=== PATIENT | female | born 1990 | race Caucasian/White ===

== ENCOUNTER 2018-01-02 03:17 | Emergency (ER) | payer OTHER, SELFPAY ==
[2018-01-02 03:20] VITALS: O2SAT 98
--- NOTE | 2018-01-02 03:20 | ED.SOB ---
HPI - SOB/Dyspnea General Chief Complaint: Upper Respiratory Symptoms Stated Complaint: Asthma Time Seen by Provider: 01/02/18 03:18 Source: patient Mode of arrival: ambulatory Limitations: no limitations History of Present Illness Patient is a 27-year-old female with a history of asthma here for evaluation of a asthma attack. Patient states that her symptoms started yesterday. She does have home nebulizer and has been doing that at home and also prior to arrival without improvement. States that her respiratory status has been worsening over the past couple hours. No fevers. Has been coughing. Has been admitted to the hospital in the past for asthma however has had no intubations. No chest pain. No rashes. Related Data Previous Rx's Medication Instructions Recorded dexamethasone 12 mg PO DAILY #3 tab 01/02/18 Allergies Allergy/AdvReac Type Severity Reaction Status Date / Time No Known Drug Allergies Allergy Verified 01/02/18 03:27 Review of Systems Constitutional Denies fever(s) Cardiovascular Denies chest pain and Reports dyspnea Respiratory Reports cough, Reports dyspnea and Reports wheezing Gastrointestinal Gastrointestinal: Denies nausea and Denies vomiting Musculoskeletal Denies myalgias and Denies arthralgias Integumentary/Breasts Denies lesions and Denies rash Hematologic/Lymphatic Denies easy bleeding and Denies easy bruising Allergic/Immunologic Reports wheezing [facility] Medical History Asthma (Acute) Surgical History No pertinent past surgical history (Acute) Social History Smoking Status: Never smoker Exam Initial Vital Signs Initial Vital Signs: Vital Signs Pulse Oximetry 98 01/02/18 03:20 Const General: cooperative, well developed, well groomed and in distress (Tachypneic) Orientation: alert, awake and oriented x3 Resp Effort & Inspection: labored, respiratory distress, no retractions and tachypneic Auscultation: wheezes Other: Tachypneic, 4-5 word sentences, bilateral wheezing no retractions. Cardio Rate: regular rate Rhythm: regular rhythm Heart Sounds: no murmurs Skin Lesions: no lesions Rashes: no rashes Neuro General: alert, awake and oriented x3 Extrem General: normal to inspection, capillary refill normal and No edema Psych Appearance: grossly normal and well kempt Course Orders Ordered: Discontinued Medications Albuterol/Ipratropium (Duoneb) 3 ml INH NOW ONE Stop: 01/02/18 03:19 Last Admin: 01/02/18 03:22 Dose: 3 ml Albuterol/Ipratropium (Duoneb) 3 ml INH NOW ONE Stop: 01/02/18 03:19 Last Admin: 01/02/18 03:30 Dose: 3 ml Albuterol/Ipratropium (Duoneb) 3 ml INH NOW ONE Stop: 01/02/18 03:38 Last Admin: 01/02/18 03:42 Dose: 3 ml Dexamethasone (Decadron) 10 mg PO NOW ONE Stop: 01/02/18 03:19 Last Admin: 01/02/18 03:28 Dose: 10 mg Vital Signs - 8 hr 01/02/18 03:20 01/02/18 03:21 01/02/18 03:30 Temperature 97.2 F L Pulse Rate 118 H Respiratory Rate 18 Blood Pressure 158/97 H Pulse Oximetry 98 97 98 MDM - SOB/Dyspnea MDM Narrative Medical decision making narrative: Patient received 3 duo nebs here in the emergency department and also Decadron. Patient states that she feels much better after the duo nebs. She states when this happens she normally needs steroids. Hold on chest x-ray for now. Low suspicion for pneumonia. Offered patient to stay here in the emergency department for evaluation for period of time however patient was asking to go home. Patient was given return precautions. She expressed understanding and agreement with plan. Discharge Plan Departure Patient Disposition: Home, Self-Care Clinical Impression: Asthma exacerbation Instructions: Asthma (Alternative Therapy), DI for Asthma -- Adult Activity Restrictions/Additional Instructions: Continue all of your medications as directed. The Decadron should be taken 36 hr after discharge from the emergency department. Would recommend that you do a nebulizer treatment at home every 4 hr for the next 24 hr. Return to the emergency department for any new or worsening symptoms Prescriptions: New dexamethasone 4 mg tablet 12 mg PO DAILY Qty: 3 RF: 0
[2018-01-02 03:21] VITALS: BP 158/97; PULSE 118; RESP 18; TEMP 36.2; O2SAT 97; BMI 26.6
[2018-01-02] MEDS: ALBUTEROL/IPRATROPIUM 3 ML AMPUL INH ×3 (03:22→03:42)
[2018-01-02] MEDS: DEXAMETHASONE 10 MG/ML VIAL PO (03:28)
[2018-01-02 03:30] VITALS: O2SAT 98
[2018-01-02 04:28] VITALS: BP 120/81; PULSE 88; RESP 18; O2SAT 97
== END 2018-01-02 04:29 | disposition home or self-care (01) ==
PROVIDERS: Emergency Provider Emergency Medicine
DX: J45.901 Unspecified asthma with (acute) exacerbation (principal)
CPT/HCPCS: 94640; 99283; 99285; J1100

== ENCOUNTER 2018-04-13 08:38 | Emergency (ER) | payer OTHER, SELFPAY ==
[2018-04-13 08:46] VITALS: BP 141/81; PULSE 102; RESP 24; TEMP 36.8; O2SAT 99; BMI 26.1
--- NOTE | 2018-04-13 08:55 | ED.ASTHMA ---
HPI - Asthma General Chief Complaint: Asthma Stated Complaint: ASTHMA Time Seen by Provider: 04/13/18 08:46 Source: patient Mode of arrival: ambulatory Limitations: no limitations History of Present Illness HPI Narrative: Patient is a at approximately 12 weeks EGA with a history of asthma on daily maintenance inhalers and occasional use of rescue albuterol inhaler here for evaluation of wheezing. Patient states that her symptoms started yesterday when she thought that she was getting a ?chest cold? because of coughing. Was nonproductive. No fevers. Has been hospitalized in the past because of her asthma but has never been intubated. She did do 2 duo nebs at home prior to arrival which did not seem to improve much of her symptoms. No vaginal bleeding vaginal discharge loss of fluid or urinary symptoms Related Data Home Medications Medication Instructions Recorded Confirmed albuterol sulfate 1 - 2 puff INHALATION Q6H PRN 04/13/18 04/13/18 Previous Rx's Medication Instructions Recorded dexamethasone 12 mg PO DAILY #3 tab 01/02/18 Allergies Allergy/AdvReac Type Severity Reaction Status Date / Time No Known Drug Allergies Allergy Verified 01/02/18 03:27 Review of Systems Constitutional Denies fever(s) and Denies headache(s) Eyes Denies itchy eyes ENT Ears, Nose, Mouth, and Throat: Denies headache(s), Denies lip swelling, Denies throat swelling and Denies tongue swelling Cardiovascular Denies chest pain and Reports dyspnea Respiratory Reports chest congestion, Reports cough, Reports dyspnea and Reports wheezing Gastrointestinal Gastrointestinal: Denies abdominal pain, Denies change in bowel habits, Denies nausea and Denies vomiting Genitourinary Denies dysuria and Denies vaginal discharge Musculoskeletal Denies myalgias and Denies arthralgias Integumentary/Breasts Denies rash Neurologic Denies headache(s) Hematologic/Lymphatic Comments: Not on anticoagulation Allergic/Immunologic Denies urticaria, Denies itchy eyes, Denies lip swelling, Denies throat swelling, Denies tongue swelling and Reports wheezing Exam Initial Vital Signs Initial Vital Signs: Vital Signs Temperature 98.2 F 04/13/18 08:46 Pulse Rate 102 H 04/13/18 08:46 Respiratory Rate 24 04/13/18 08:46 Blood Pressure 141/81 H 04/13/18 08:46 Pulse Oximetry 99 04/13/18 08:46 Const General: cooperative, healthy appearing, comfortable, well developed, well groomed and No acute distress Orientation: alert, awake and oriented x3 HENMT Head: normal to inspection and normocephalic Resp Effort & Inspection: normal respiratory effort, no cough, not labored, no nasal flaring, no retractions and tachypneic Auscultation: wheezes (Expiratory wheezes on the left inspiratory and expiratory wheezes on the right) Cardio Rate: tachycardic Rhythm: regular rhythm Pulses: radial pulses present GI Inspection: non-distended Skin Lesions: no lesions Rashes: no rashes Neuro General: alert, awake and oriented x3 Extrem General: normal to inspection and capillary refill normal Psych Appearance: grossly normal and well kempt [facility] Social History Smoking Status: Never smoker Course Orders Ordered: Albuterol (Ventolin) 2.5 mg INH NOW PRN PRN Reason: Wheezing Last Admin: 04/13/18 09:08 Dose: 2.5 mg Admin: 04/13/18 08:59 Dose: 2.5 mg Vital Signs - 8 hr 04/13/18 08:46 04/13/18 09:00 04/13/18 09:03 Temperature 98.2 F Pulse Rate 102 H 112 H 106 H Respiratory Rate 24 19 Blood Pressure 141/81 H Blood Pressure [Left Arm] 130/86 Pulse Oximetry 99 100 97 MDM - Asthma MDM Narrative Medical decision making narrative: Patient improved after nebulizers here in the emergency department. She was afebrile and her lungs were clear after the nebulizers so I feel that pneumonia is unlikely. Will hold on chest x-ray secondary to this and also the fact that she is . Also avoid steroids secondary to the . I did discuss this with her. Since she did improve so much with the nebulizer treatments I feel likely could hold on giving steroids for now. I did inform her that if her symptoms return then we could use steroids. She does have a nebulizer at home. We did discuss the use of this. We also discussed potential [id number] cold preparations and status. She was given return precautions. She expressed understanding and agreement with plan Discharge Plan Departure Patient Disposition: Home Clinical Impression: Asthma with acute exacerbation Instructions: Medications and , Asthma -- Adult Activity Restrictions/Additional Instructions: You can take Claritin/Flonase/Tylenol/guaifenesin/Mucinex while your . Avoid Motrin/ibuprofen/pseudoephedrine. Recommend that every 4 hr while your wake you use your nebulizer at home like we discussed. Return to the emergency department for any new or worsening symptoms. Prescriptions: No Action dexamethasone 4 mg tablet 12 mg PO DAILY Qty: 3 RF: 0 albuterol sulfate 90 mcg/actuation Hfa Aerosol Inhaler 1 - 2 puff INHALATION Q6H PRN (Reason: Wheezing) RF: 0
[2018-04-13] MEDS: ALBUTEROL 2.5 MG/3 ML NEB (ADULT) INH ×2 (08:59→09:08)
[2018-04-13 09:00] VITALS: BP 130/86; PULSE 112; O2SAT 100
[2018-04-13 09:03] VITALS: PULSE 106; RESP 19; O2SAT 97
[2018-04-13 09:55] VITALS: BP 140/86; PULSE 117; RESP 20; O2SAT 96
== END 2018-04-13 09:56 | disposition home or self-care (01) ==
PROVIDERS: Emergency Provider Emergency Medicine
DX: J45.901 Unspecified asthma with (acute) exacerbation (principal)
CPT/HCPCS: 94150; 94640; 99282; J7613

== ENCOUNTER 2018-04-29 11:13 | Emergency (ER) | payer OTHER, SELFPAY ==
[2018-04-29 11:19] VITALS: BP 154/93; PULSE 115; RESP 17; TEMP 36.7; O2SAT 99; BMI 26.1
--- NOTE | 2018-04-29 11:33 | PC.NURSE ---
Pt is 14 weeks , due date of October 27, 2018. Denies any recent travel, denies cigarette smoking. Is currently taking aspirin every day as a preventative measure for pre-eclampsia, which she had in her last . This is her fourth and so far has had no complications. Feeling nauseated today and short of breath and 5/10 chest tightness/pain. She states that she does have a hx of asthma, but feels the shortness of breath is different than her typical asthma symptoms. Her lung seo are clear throughout.
--- NOTE | 2018-04-29 11:47 | ED.CHESTPAIN ---
HPI - Chest Pain General Chief Complaint: Chest Pain Stated Complaint: Chest pain/tightness Time Seen by Provider: 04/29/18 11:44 Source: patient Mode of arrival: ambulatory Limitations: no limitations History of Present Illness HPI narrative: PATIENT IS A 28-YEAR-OLD FEMALE CURRENTLY 14 WEEKS PRESENTING WITH SHORTNESS OF BREATH. SHE DOES HAVE A HISTORY OF ASTHMA BUT STATES it is not her asthma. She says with very minimal activity she gets extremely short of breath. She did try her albuterol at home which did not help. She is . Her previous she did develop preeclampsia and now she is on aspirin. No history of clotting disorder or multiple miscarriages. She denies any fever or productive cough. She is currently tachycardic. MD complaint: other (Dyspnea) Duration: constant Onset: during exertion Relieving factors: rest Exacerbating factors: exertion Related Data Home Medications Medication Instructions Recorded Confirmed albuterol sulfate [ProAir HFA] 1 - 2 puff INHALATION Q6H PRN 04/13/18 04/13/18 [id number] 1 tab PO Q4H 04/29/18 04/29/18 fluticasone-salmeterol [Advair 1 puff INHALATION BID 04/29/18 04/29/18 Diskus] ipratropium-albuterol 1 neb INHALATION DIRECTED 04/29/18 04/29/18 [id number] fum-folic 1 tab PO DAILY 04/29/18 04/29/18 Previous Rx's Medication Instructions Recorded prednisone 50 mg PO DAILY #5 tab 04/29/18 Allergies Allergy/AdvReac Type Severity Reaction Status Date / Time No Known Drug Allergies Allergy Verified 04/29/18 11:19 Review of Systems Review of Systems All systems reviewed & are unremarkable except as noted in HPI and below Constitutional Denies chills, Denies fever(s), Denies lethargy and Denies weakness Cardiovascular Reports chest pain (Tightness), Reports dyspnea and Reports dyspnea on exertion Respiratory Reports as per HPI, Denies chest congestion, Denies pain on inspiration, Denies pain with cough, Reports dyspnea and Reports dyspnea on exertion Gastrointestinal Gastrointestinal: Denies abdominal pain, Denies change in bowel habits, Denies diarrhea, Denies nausea and Denies vomiting Genitourinary Denies hematuria, Denies flank pain, Denies urinary incontinence and Denies urinary urgency Musculoskeletal Denies back pain, Denies muscle weakness, Denies numbness and Denies tingling Neurologic Denies confusion, Denies numbness, Denies tingling and Denies weakness Psychiatric Denies anxiety, Denies confusion, Denies depression, Denies homicidal ideation and Denies suicidal ideation [facility] Medical History Asthma (Acute) Preeclampsia (Acute) Surgical History No pertinent past surgical history (Acute) Social History Smoking Status: Never smoker Exam Initial Vital Signs Initial Vital Signs: Vital Signs Temperature 98.1 F 04/29/18 11:19 Pulse Rate 115 H 04/29/18 11:19 Respiratory Rate 17 04/29/18 11:19 Blood Pressure 154/93 H 04/29/18 11:19 Pulse Oximetry 99 04/29/18 11:19 GENERAL: Well-appearing, well-nourished and in no acute distress. HEENT: Head atraumatic,EOMI, pupils reactive, face symmetric CARDIOVASCULAR: Tachycardic regular no murmur RESPIRATORY: Breath sounds equal bilaterally, no wheezes rales or rhonchi. Speaks in full sentences no respiratory distress ABDOMEN: Soft, nontender. Normoactive bowel sounds all 4 quadrants. No guarding or rebound. : No CVA tenderness EXTREMITIES: Normal range of motion, no clubbing or edema. Neurovascularly intact NEUROLOGICAL: Alert and oriented x4.Normal gait and speech. SKIN: Warm, dry, no laceration, no petechiae, no rashes or lesions. Course Orders Ordered: ED Orders 04/29/18 11:25 B Type Natriuretic Peptide Stat Complete Blood Count AUTO DIFF Stat Comprehensive Metabolic Panel Stat Lipase Stat Troponin & CK Cardiac Panel Stat 04/29/18 11:55 XR chest 2V Stat 04/29/18 11:56 US periph venous low extrem bi Stat Discontinued Medications Albuterol (Ventolin) 2.5 mg INH NOW ONE Stop: 04/29/18 11:55 Last Admin: 04/29/18 12:21 Dose: 2.5 mg Sodium Chloride (Normal Saline 0.9%) 1,000 mls @ 1,000 mls/hr IV CONT COLTON Last Infusion: 04/29/18 14:56 Dose: 0 mls/hr Admin: 04/29/18 12:21 Dose: 1,000 mls/hr Methylprednisolone (Solu-Medrol 125 Mg Vial) 125 mg IV NOW ONE Stop: 04/29/18 14:32 Last Admin: 04/29/18 15:01 Dose: 125 mg Vital Signs - 8 hr 04/29/18 11:19 04/29/18 12:05 04/29/18 12:34 Temperature 98.1 F Pulse Rate 115 H 92 H 99 H Respiratory Rate 17 21 18 Blood Pressure 154/93 H Blood Pressure [Right Arm] 118/89 Pulse Oximetry 99 98 98 04/29/18 13:00 04/29/18 13:30 04/29/18 15:20 Temperature Pulse Rate 95 H 94 H 103 H Respiratory Rate 16 21 20 Blood Pressure 123/81 Blood Pressure [Right Arm] 112/65 120/80 Pulse Oximetry 98 99 100 MDM - Chest Pain Lab Data Attestation: I reviewed the patient's lab results. Result diagrams: 04/29/18 11:25 04/29/18 11:25 Lab Results 04/29/18 04/29/18 Range/Units 11:25 11:25 WBC 16.9 H (4.5-11.0) X10^3/uL RBC 5.09 (4.0-5.2) X10^6/uL Hgb 14.5 (12.0-16.0) g/dL Hct 42.4 (36-46) % MCV 83.3 (80-100) fL MCH 28.6 (26-34) PG MCHC 34.3 (30-36) % RDW 13.1 (11.6-14.8) % Plt Count 285 (150-400) X10^3/uL Neut % (Auto) 83.0 H (50-75) % Lymph % (Auto) 8.8 L (25-40) % Dubois % (Auto) 4.5 (3-14) % Eos % (Auto) 3.6 (2-4) % Baso % (Auto) 0.1 (0-2) % Neut # (Auto) 72019 H (8280-4101) /uL Sodium 142 (137-145) mmol/L Potassium 3.9 (3.4-5.1) mmol/L Chloride 105 (98-107) mmol/L Carbon Dioxide 23 (22-32) mmol/L BUN 7 (7-17) mg/dL Creatinine 0.50 L (0.52-1.04) mg/dL Estimated GFR > 60.0 (>60) mL/min BUN/Creatinine Ratio 14.0 (6-22) Glucose 79 (70-100) mg/dL Calcium 10.0 (8.4-10.2) mg/dL Total Bilirubin 0.4 (0.2-1.3) mg/dL AST 28 (14-36) IU/L ALT 22 (9-52) IU/L Alkaline Phosphatase 62 (38-126) U/L Total Creatine Kinase 41 (30-135) U/L CK-MB (CK-2) TNP CK-MB (CK-2) Rel Index TNP Troponin I < 0.012 (0.01-0.034) ng/mL B-Natriuretic Peptide < 100.0 (<100) Total Protein 7.8 (6.3-8.2) g/dL Albumin 4.5 (3.5-5.0) g/dL Globulin 3.3 (1.7-4.1) g/dL Albumin/Globulin Ratio 1.4 (1.0-2.8) Lipase 134 (23-300) U/L Imaging Data Venous US: Radiologist's impression: PROCEDURE: US PERIPH VENOUS LOW EXTREM BI INDICATIONS: SOB; TECHNIQUE: Real-time imaging, as well as color and pulse Doppler interrogation, were performed of the deep veins of both legs from the inguinal ligament to the popliteal fossa. COMPARISON: None. FINDINGS: The deep veins are normally compressible, and free of intraluminal thrombus. Color and pulse Doppler demonstrate normal phasic intravascular flow. There is normal augmentation response to distal compression maneuver. IMPRESSION: No evidence of deep vein thrombosis involving the bilateral lower extremities. Dictated by: Miki Huttno M.D. on 04/29/2018 at 11:24 Chest x-ray: Radiologist's impression: PROCEDURE: XR CHEST 2V INDICATIONS: chest pain short of breath TECHNIQUE: 2 views of the chest were acquired. COMPARISON: None. FINDINGS: Surgical changes and devices: None. Lungs and pleura: No pleural effusions or pneumothorax. Lungs are clear. Mediastinum: Mediastinal contours are normal. Heart size is normal. Bones and chest wall: No suspicious bony abnormalities. Soft tissues appear unremarkable. IMPRESSION: No acute cardiopulmonary disease process. Dictated by: Coco Dee MD, PhD on 04/29/2018 at 12:33 ECG Data Attestation: I personally reviewed and interpreted this ECG as follows: Prior ECG tracings: not available for review Interpretation: Sinus tachycardia rate [address] changes no T-wave inversion no priors to compare MDM Narrative Medical decision making narrative: 1:30 p.m. I spoke with Dr. Siddiqui patient's OBGYN discussed with him my concern for possible PE and current negative workup. He agreed recommended CTA. 2:30 p.m. I had multiple conversations with the patient regarding pulmonary embolism, consequences including to her and fetus. I have explained why her signs and symptoms are concerning for pulmonary embolism. Have discussed risks of CT with patient. She is discussed this with her . At this time she would like to decline the CT. She states that she had a chest cold last week, her asthma usually flares it does usually get better with prednisone. She would like to try course of prednisone and if it gets worse then return to the emergency department. I discussed all findings with the patient , Education has been performed regarding treatment plan, diagnosis, warning signs and symptoms and all concerns have been addressed. Verbally agree with and understood all of the above. Discharge Plan Departure Patient Disposition: Home Clinical Impression: Asthma Discharge Date/Time: 04/29/18 15:21 Interventions: ED Discharge Assessment Last Done: 04/29/18 15:20 Instructions: Pulmonary Embolism, Asthma -- Adult Activity Restrictions/Additional Instructions: *You have been diagnosed with likely asthma *What to do: Pulmonary embolism has not been excluded and can cause . If you are not having any improvement of her symptoms please return to the emergency department immediately *Continue to take medications as directed Prednisone 50 mg once a day for 5 days *Follow up with your senior quality assurance engineer doctor lobe who is aware of the situation *Return to ER if you should have increasing shortness of breath, passing out, persistent elevated heart rate or any new, worsening or concerning symptoms Prescriptions: New prednisone 50 mg tablet 50 mg PO DAILY Qty: 5 RF: 0 No Action albuterol sulfate [ProAir HFA] 90 mcg/actuation Hfa Aerosol Inhaler 1 - 2 puff INHALATION Q6H PRN (Reason: Wheezing) RF: 0 fluticasone-salmeterol [Advair Diskus] 250-50 mcg/dose blister with device 1 puff Inhalation BID RF: 0 [id number]-[id number]-[id number] 50-325-40 mg tablet 1 tab PO Q4H RF: 0 ipratropium-albuterol 0.5 mg-3 mg(2.5 mg base)/3 mL solution for nebulization 1 neb Inhalation DIRECTED RF: 0 [id number] fum-folic 27 mg iron- 800 mcg tablet 1 tab PO DAILY RF: 0
--- NOTE | 2018-04-29 11:55 | DI.RAD.S_ITS ---
PROCEDURE: XR CHEST 2V INDICATIONS: chest pain short of breath TECHNIQUE: 2 views of the chest were acquired. COMPARISON: None. FINDINGS: Surgical changes and devices: None. Lungs and pleura: No pleural effusions or pneumothorax. Lungs are clear. Mediastinum: Mediastinal contours are normal. Heart size is normal. Bones and chest wall: No suspicious bony abnormalities. Soft tissues appear unremarkable. IMPRESSION: No acute cardiopulmonary disease process. Dictated by: Coco Dee MD, PhD on 04/29/2018 at 12:33 Approved by: Coco Dee MD, PhD on 04/29/2018 at 12:33
--- NOTE | 2018-04-29 11:56 | DI.US.S_ITS ---
PROCEDURE: US PERIPH VENOUS LOW EXTREM BI INDICATIONS: SOB; TECHNIQUE: Real-time imaging, as well as color and pulse Doppler interrogation, were performed of the deep veins of both legs from the inguinal ligament to the popliteal fossa. COMPARISON: None. FINDINGS: The deep veins are normally compressible, and free of intraluminal thrombus. Color and pulse Doppler demonstrate normal phasic intravascular flow. There is normal augmentation response to distal compression maneuver. IMPRESSION: No evidence of deep vein thrombosis involving the bilateral lower extremities. Dictated by: Miki Hutton M.D. on 04/29/2018 at 11:24 Approved by: Miki Hutton M.D. on 04/29/2018 at 11:25
[2018-04-29 12:04] LABS: Add Manual Diff / Slide Review NO; Basophils Percent Auto 0.1 % (0-2); Eosinophils Percent Auto 3.6 % (2-4); Hematocrit 42.4 % (36-46); Hemoglobin 14.5 g/dL (12.0-16.0); Lymphocytes Percent Auto 8.8 % (25-40); Mean Corpuscular HGB Conc 34.3 % (30-36); Mean Corpuscular Hemoglobin 28.6 PG (26-34); Mean Corpuscular Volume 83.3 fL (80-100); Monocytes Percent Auto 4.5 % (3-14); Neutrophils Absolute Auto 14000 /uL (3000-5900); Platelet Count 285 X10^3/uL (150-400); Red Blood Cell Count 5.09 X10^6/uL (4.0-5.2); Red Cell Distribution Width 13.1 % (11.6-14.8); White Blood Cell Count 16.9 X10^3/uL (4.5-11.0)
[2018-04-29 12:05] VITALS: BP 118/89; PULSE 92; RESP 21; O2SAT 98
[2018-04-29 12:09] LABS: Alanine Aminotransferase 22 IU/L (9-52); Albumin 4.5 g/dL (3.5-5.0); Albumin Globulin Ratio 1.4 (1.0-2.8); Alkaline Phosphatase 62 U/L (38-126); Aspartate Aminotransferase 28 IU/L (14-36); Bilirubin Total 0.4 mg/dL (0.2-1.3); Blood Urea Nitrogen 7 mg/dL (7-17); Carbon Dioxide 23 mmol/L (22-32); Chloride 105 mmol/L (98-107); Creatine Kinase 41 U/L (30-135); Estimated Glomerular Filt Rate > 60.0 mL/min (>60); Globulin 3.3 g/dL (1.7-4.1); Glucose 79 mg/dL (70-100); HEMOLYSIS < 15 (0-50); Lipase 134 U/L (23-300); Potassium 3.9 mmol/L (3.4-5.1); Sodium 142 mmol/L (137-145); Total Protein 7.8 g/dL (6.3-8.2)
[2018-04-29] MEDS: ALBUTEROL 2.5 MG/3 ML NEB (ADULT) INH (12:21)
[2018-04-29] MEDS: SODIUM CHLORIDE 0.9% 1,000 ML 1000 ML IV (12:21)
[2018-04-29 12:22] LABS: Troponin I < 0.012 ng/mL (0.01-0.034)
[2018-04-29 12:26] LABS: B Type Natriuretic Peptide < 100.0 (<100)
[2018-04-29 12:34] VITALS: PULSE 99; RESP 18; O2SAT 98
[2018-04-29 13:00] VITALS: BP 112/65; PULSE 95; RESP 16; O2SAT 98
[2018-04-29 13:30] VITALS: BP 120/80; PULSE 94; RESP 21; O2SAT 99
[2018-04-29] MEDS: methylPREDNISolone 125 MG/2 ML VIAL IV (15:01)
[2018-04-29 15:20] VITALS: BP 123/81; PULSE 103; RESP 20; O2SAT 100
== END 2018-04-29 15:21 | disposition home or self-care (01) ==
PROVIDERS: Emergency Provider Emergency Medicine
DX: J45.901 Unspecified asthma with (acute) exacerbation (principal)
CPT/HCPCS: 36591; 71046; 80053; 82550; 83690; 83880; 84484; 85025; 93005; 93010; 93970; 94640; 96361; 96374; 99283; 99285; J2930; J7613

== ENCOUNTER 2018-05-05 12:15 | Emergency (ER) | payer OTHER, SELFPAY ==
[2018-05-05] VITALS (13 sets, daily range): BP systolic 107–134; BP diastolic 44–99; PULSE 121–157; RESP 16–28; TEMP 36.6–37; O2SAT 95–98
[2018-05-05] MEDS: ALBUTEROL 2.5 MG/3 ML NEB (ADULT) INH ×4 (12:51→21:13)
[2018-05-05] MEDS: SODIUM CHLORIDE 0.9% 1,000 ML 1000 ML IV ×2 (12:54→14:05)
[2018-05-05 13:43] LABS: Add Manual Diff / Slide Review NO; Basophils Percent Auto 0.2 % (0-2); Eosinophils Percent Auto 2.3 % (2-4); Hematocrit 39.7 % (36-46); Hemoglobin 13.3 g/dL (12.0-16.0); Lymphocytes Percent Auto 4.5 % (25-40); Mean Corpuscular HGB Conc 33.5 % (30-36); Mean Corpuscular Hemoglobin 28.1 PG (26-34); Mean Corpuscular Volume 83.8 fL (80-100); Monocytes Percent Auto 1.8 % (3-14); Neutrophils Absolute Auto 17600 /uL (1500-7000); Neutrophils Percent Auto 91.2 % (50-75); Platelet Count 275 X10^3/uL (150-400); Red Blood Cell Count 4.74 X10^6/uL (4.0-5.2); Red Cell Distribution Width 13.2 % (11.6-14.8); White Blood Cell Count 19.3 X10^3/uL (4.5-11.0)
--- NOTE | 2018-05-05 13:44 | ED_ITS ---
HPI - SOB/Dyspnea General Chief Complaint: Shortness of Breath/Dyspnea Stated Complaint: Asthma Time Seen by Provider: 05/05/18 12:19 Source: patient, EMS and old records reviewed Mode of arrival: EMS Limitations: no limitations History of Present Illness Patient is a 28-year-old female who presents with shortness of breath. She is currently 15 weeks with history of asthma. I actually saw and evaluated her last week for the same. She is significantly worse today. She says she actually did get better with prednisone and albuterol she finished prednisone on she had thought she was better. Saturday she woke up she felt worse she now has laryngitis she has had body aches and increasing shortness of breath. She has been doing multiple albuterol treatments at home without any relief today. She did get Solu-Medrol prior to arrival by the PCP or EMS. MD Complaint: shortness of breath and cough Related Data Home Medications Medication Instructions Recorded Confirmed albuterol sulfate [ProAir HFA] 1 - 2 puff INHALATION Q6H PRN 04/13/18 05/05/18 [id number] 1 tab PO Q4H 04/29/18 05/05/18 fluticasone-salmeterol [Advair 1 puff INHALATION BID 04/29/18 05/05/18 Diskus] ipratropium-albuterol 1 neb INHALATION DIRECTED 04/29/18 05/05/18 [id number] fum-folic 1 tab PO DAILY 04/29/18 05/05/18 aspirin 81 mg PO DAILY 05/05/18 05/05/18 Allergies Allergy/AdvReac Type Severity Reaction Status Date / Time No Known Drug Allergies Allergy Verified 04/29/18 11:19 Review of Systems Review of Systems All systems reviewed & are unremarkable except as noted in HPI and below Constitutional Denies chills, Reports fatigue, Denies fever(s), Denies lethargy and Denies weakness ENT Ears, Nose, Mouth, and Throat: Denies change in voice, Denies vertigo, Denies dizziness, Denies neck pain and Denies sore throat Cardiovascular Denies chest pain, Reports rapid heart rate, Denies irregular heart rhythm, Reports dyspnea and Reports dyspnea on exertion Respiratory Reports dyspnea, Reports dyspnea on exertion and Reports wheezing Gastrointestinal Gastrointestinal: Denies abdominal pain, Denies change in bowel habits, Denies diarrhea, Denies nausea and Denies vomiting Musculoskeletal Denies back pain, Denies atrophy and Denies neck pain Integumentary/Breasts Denies pruritus, Denies erythema, Denies rash and Denies wounds Neurologic Denies vertigo, Denies dizziness and Denies weakness Endocrine Reports fatigue Allergic/Immunologic Reports wheezing [facility] Medical History Asthma (Acute) Preeclampsia (Acute) Surgical History No pertinent past surgical history (Acute) Social History Smoking Status: Never smoker Comment: OB: Dr. Siddiqui at [facility] base: [phone] Exam Initial Vital Signs Initial Vital Signs: Vital Signs Temperature 97.8 F 05/05/18 12:31 Pulse Rate 122 H 05/05/18 12:31 Respiratory Rate 22 05/05/18 12:31 Blood Pressure 134/83 05/05/18 12:31 Pulse Oximetry 96 05/05/18 12:31 Const General: cooperative, acute distress and ill appearing Orientation: alert, awake and oriented x3 Neck Neck: normal visual inspection, full ROM and no meningeal signs Chest Chest: normal inspection of the chest Resp Effort & Inspection: not able to speak in complete sentences, labored, respiratory distress and tachypneic Auscultation: wheezes (Audible) Cardio Rate: tachycardic Rhythm: regular rhythm Heart Sounds: S1 normal and S2 normal GI Inspection: non-distended Palpation: soft, no hepatosplenomegaly, No guarding, No pulsatile mass and No tender Auscultation: normal bowel sounds Skin General: no rashes or lesions noted, No jaundice and No petechiae Course Orders Ordered: ED Orders 05/05/18 12:40 EKG-12 Lead Stat 05/05/18 13:24 B Type Natriuretic Peptide Stat Basic Metabolic Panel Stat Complete Blood Count AUTO DIFF Stat 05/05/18 13:35 Lactate (Lactic Acid) Stat 05/05/18 13:40 Blood Culture Stat 05/05/18 14:03 XR chest 1V Stat 05/05/18 15:00 Influenza A and B by PCR Rapid Stat 05/05/18 15:46 US OB limited Stat 12/17/18 17:27 Urinalysis and Microscopic Stat Lactated Ringer's (Lactated Ringers) 1,000 mls @ 200 mls/hr IV BOLUS ONE Stop: 05/05/18 20:00 Last Admin: 05/05/18 17:32 Dose: 200 mls/hr Discontinued Medications Albuterol (Ventolin) 2.5 mg INH NOW ONE Stop: 05/05/18 12:41 Last Admin: 05/05/18 12:51 Dose: 2.5 mg Albuterol (Ventolin) 2.5 mg INH NOW ONE Stop: 05/05/18 15:27 Last Admin: 05/05/18 15:28 Dose: 2.5 mg Albuterol (Ventolin) 7.5 mg INH NOW ONE Stop: 05/05/18 15:39 Last Admin: 05/05/18 15:40 Dose: 7.5 mg Sodium Chloride (Normal Saline 0.9%) 1,000 mls @ 1,000 mls/hr IV BOLUS ONE Stop: 05/05/18 13:35 Last Infusion: 05/05/18 14:07 Dose: 0 mls/hr Admin: 05/05/18 12:54 Dose: 1,000 mls/hr Sodium Chloride (Normal Saline 0.9%) 1,000 mls @ 1,000 mls/hr IV BOLUS ONE Stop: 05/05/18 15:02 Last Infusion: 05/05/18 15:18 Dose: 0 mls/hr Admin: 05/05/18 14:05 Dose: 1,000 mls/hr Sodium Chloride (Normal Saline 0.9%) 1,000 mls @ 1,000 mls/hr IV BOLUS ONE Stop: 05/05/18 15:03 Last Admin: 05/05/18 14:06 Dose: Not Given Lactated Ringer's (Lactated Ringers) 1,000 mls @ 1,000 mls/hr IV BOLUS ONE Stop: 05/05/18 15:20 Last Infusion: 05/05/18 17:26 Dose: 0 mls/hr Admin: 05/05/18 14:34 Dose: 1,000 mls/hr Ceftriaxone Sodium/Dextrose (Rocephin) 1 gm in 50 mls @ 100 mls/hr IV NOW ONE Stop: 05/05/18 15:22 Last Admin: 05/05/18 15:17 Dose: Ampicillin Sodium/Sulbactam (Sodium 3 gm/ Sodium Chloride) 100 mls @ 100 mls/ hr IV NOW ONE Stop: 05/05/18 15:02 Last Infusion: 05/05/18 16:34 Dose: 0 mls/hr Admin: 05/05/18 15:18 Dose: 100 mls/hr Vital Signs - 8 hr 05/05/18 12:31 05/05/18 12:51 05/05/18 13:00 Temperature 97.8 F Pulse Rate 122 H 121 H Respiratory Rate 22 24 Blood Pressure 134/83 Blood Pressure [Right Arm] 112/70 Pulse Oximetry 96 96 95 05/05/18 15:22 05/05/18 15:37 05/05/18 15:40 Temperature Pulse Rate 130 H 134 H 130 H Respiratory Rate 19 18 16 Blood Pressure Blood Pressure [Right Arm] 128/99 H Pulse Oximetry 95 95 98 05/05/18 17:11 Temperature Pulse Rate 128 H Respiratory Rate 19 Blood Pressure Blood Pressure [Right Arm] 119/54 L Pulse Oximetry 96 MDM - SOB/Dyspnea Differential Diagnosis Likely asthma with exacerbation and pulmonary embolism Medical Records Attestation: I reviewed the patient's medical records. Lab Data Attestation: I reviewed the patient's lab results. Result diagrams: 05/05/18 13:24 05/05/18 13:24 Lab Results 05/05/18 05/05/18 05/05/18 Range/Units 13:24 13:24 13:24 WBC 19.3 H (4.5-11.0) X10^3/uL RBC 4.74 (4.0-5.2) X10^6/uL Hgb 13.3 (12.0-16.0) g/dL Hct 39.7 (36-46) % MCV 83.8 (80-100) fL MCH 28.1 (26-34) PG MCHC 33.5 (30-36) % RDW 13.2 (11.6-14.8) % Plt Count 275 (150-400) X10^3/uL Neut % (Auto) 91.2 H (50-75) % Lymph % (Auto) 4.5 L (25-40) % [place] % (Auto) 1.8 L (3-14) % Eos % (Auto) 2.3 (2-4) % Baso % (Auto) 0.2 (0-2) % Neut # (Auto) 92225 H (4962-7555) /uL Sodium 142 (137-145) mmol/L Potassium 3.7 (3.4-5.1) mmol/L Chloride 108 H (98-107) mmol/L Carbon Dioxide 19 L (22-32) mmol/L BUN 6 L (7-17) mg/dL Creatinine 0.50 L (0.52-1.04) mg/dL Estimated GFR > 60.0 (>60) mL/min BUN/Creatinine Ratio 12.0 (6-22) Glucose 87 (70-100) mg/dL Lactate (0.7-2.1) mmol/L Calcium 9.3 (8.4-10.2) mg/dL B-Natriuretic Peptide < 100.0 (<100) Influenza A & B (PCR) (Negative) 05/05/18 05/05/18 Range/Units 13:35 15:00 WBC (4.5-11.0) X10^3/uL RBC (4.0-5.2) X10^6/uL Hgb (12.0-16.0) g/dL Hct (36-46) % MCV (80-100) fL MCH (26-34) PG MCHC (30-36) % RDW (11.6-14.8) % Plt Count (150-400) X10^3/uL Neut % (Auto) (50-75) % Lymph % (Auto) (25-40) % [place] % (Auto) (3-14) % Eos % (Auto) (2-4) % Baso % (Auto) (0-2) % Neut # (Auto) (1818-5161) /uL Sodium (137-145) mmol/L Potassium (3.4-5.1) mmol/L Chloride (98-107) mmol/L Carbon Dioxide (22-32) mmol/L BUN (7-17) mg/dL Creatinine (0.52-1.04) mg/dL Estimated GFR (>60) mL/min BUN/Creatinine Ratio (6-22) Glucose (70-100) mg/dL Lactate 1.0 (0.7-2.1) mmol/L Calcium (8.4-10.2) mg/dL B-Natriuretic Peptide (<100) Influenza A & B (PCR) Negative (Negative) Urine Dip Bedside Urine Glucose Negative Bedside Urine Bilirubin - Negative Bedside Urine Ketone +++ 80 Urine Specific [place] 1.020 Bedside Urine Occult Blood - Negative Bedside Urine pH 6.0 Bedside Urine Protein - Negative Bedside Urine Urobilinogen - Negative Bedside Urine Nitrite - Negative Bedside Urine Leukocytes - Negative Esterase Imaging Data Chest x-ray: Radiologist's impression: PROCEDURE: XR CHEST 1V INDICATIONS: short of breath cough TECHNIQUE: One view of the chest was acquired. COMPARISON: None. FINDINGS: Surgical changes and devices: None. Lungs and pleura: No pleural effusions or pneumothorax. Lungs are clear. Mediastinum: Mediastinal contours appear normal. Heart size is normal. Bones and chest wall: No suspicious bony lesions. Overlying soft tissues appear unremarkable. IMPRESSION: No acute process. Dictated by: Karo Tinajero M.D. on 05/05/2018 at 14:36 OB US: Radiologist's impression: PROCEDURE: US OB LIMITED INDICATIONS: check baby, SOB OUTSIDE/PRIOR DATING DATA: Last menstrual period (LMP): 01/20/18. LMP-based estimated date of delivery (CORRIE): 10/27/18. First dating scan (date and location): 05/05/18. Estimated date of delivery (CORRIE) from first dating scan: 10/27/18. TECHNIQUE: Real-time scanning was performed of the fetus, with image documentation. COMPARISON: None. FINDINGS: A single living intrauterine gestation is present. Presentation: Breech Placenta: Placental position is anterior without evidence of previa. Amniotic fluid index: Within normal limits, subjectively. heart rate: 168 beats per minute. Maternal cervical canal: 2.4 cm in length. Biometry: BPD: 2.8 cm, 15 weeks 0 days. HC: 10.8 cm, 15 weeks 1 day. AC: 8.9 cm, 15 weeks 1 day. FL: 1.6 cm, 14 weeks 5 days. Other: No anatomic abnormalities are evident on the provided images. Formal anatomic survey was not performed, however. IMPRESSION: 1. Single live intrauterine at 15 weeks 0 days (current CORRIE 10/27/18) is concordant with the provided clinical dates. 2. No obvious abnormalities are evident. Dictated by: Miki Hutton M.D. on 05/05/2018 at 16:21 ECG Data Attestation: I personally reviewed and interpreted this ECG as follows: Prior ECG tracings: available for review Interpretation: Sinus tachycardia rate [address] changes similar to previous EKG MDM Narrative Medical decision making narrative: Patient does improve with albuterol. She is quite tachycardic. She is not hypoxic. I discussed with her again as I did last time need for CT to rule out PE. She is understands risks a PE. She she feels like she may just be sick and does not want have a CT at this time. She is agreeable to a chest x-ray. He is requiring multiple frequent all albuterol treatments she also remains very tachycardic 120-130. She has never hypoxic. I spoke with Dr. Macias on-call [facility] based on patient's symptoms and history requests that patient be transferred some place for high-risk OB. [place] close She is actually on list at [facility] but they will not likely have a bed for 1-2 days. [facility] also close I spoke with Dr. Perez hospitalist at [facility] in regards to admitting patient for asthma exacerbation with OB consult. However at this time she is hesitant to take patient also agrees with Ob that the patient should be transferred to higher level of care Spoke with Khadijah Cox at [facility] request patient be admitted to Ob I spoke with OB at [facility] who requests that patient be admitted to hospitalist and he will consult if needed Khadijah Cox accepts patient Patient being transferred to [place]' Discharge Plan Departure Patient Disposition: [facility] Clinical Impression: Asthma with exacerbation, Prescriptions: No Action albuterol sulfate [ProAir HFA] 90 mcg/actuation Hfa Aerosol Inhaler 1 - 2 puff INHALATION Q6H PRN (Reason: Wheezing) RF: 0 fluticasone-salmeterol [Advair Diskus] 250-50 mcg/dose blister with device 1 puff Inhalation BID RF: 0 [id number]-itvdibrofakuu-ftxp 50-325-40 mg tablet 1 tab PO Q4H RF: 0 ipratropium-albuterol 0.5 mg-3 mg(2.5 mg base)/3 mL solution for nebulization 1 neb Inhalation DIRECTED RF: 0 [id number] fum-folic 27 mg iron- 800 mcg tablet 1 tab PO DAILY RF: 0 aspirin 81 mg Tablet,Delayed Release (Dr/Ec) 81 mg PO DAILY RF: 0 Referrals: [facility] [Provider Group] (Dr. Siddiqui)
[2018-05-05 13:49] LABS: Blood Urea Nitrogen 6 mg/dL (7-17); Calcium 9.3 mg/dL (8.4-10.2); Carbon Dioxide 19 mmol/L (22-32); Chloride 108 mmol/L (98-107); Estimated Glomerular Filt Rate > 60.0 mL/min (>60); Glucose 87 mg/dL (70-100); HEMOLYSIS < 15 (0-50); Potassium 3.7 mmol/L (3.4-5.1); Sodium 142 mmol/L (137-145)
--- NOTE | 2018-05-05 14:03 | DI.RAD.S_ITS ---
PROCEDURE: XR CHEST 1V INDICATIONS: short of breath cough TECHNIQUE: One view of the chest was acquired. COMPARISON: None. FINDINGS: Surgical changes and devices: None. Lungs and pleura: No pleural effusions or pneumothorax. Lungs are clear. Mediastinum: Mediastinal contours appear normal. Heart size is normal. Bones and chest wall: No suspicious bony lesions. Overlying soft tissues appear unremarkable. IMPRESSION: No acute process. Dictated by: Karo Tinajero M.D. on 05/05/2018 at 14:36 Approved by: Karo Tinajero M.D. on 05/05/2018 at 14:36
[2018-05-05 14:04] LABS: B Type Natriuretic Peptide < 100.0 (<100)
[2018-05-05] MEDS: LACTATED RINGERS 1,000 ML 1000 ML IV (14:34)
[2018-05-05] MEDS: AMPICILLIN/SULBACTAM 3 GM 3 GM in SODIUM CHLORIDE 0.9% 100 ML IV (15:18)
[2018-05-05] MEDS: ALBUTEROL 2.5 MG/3 ML NEB (ADULT) 7.5 MG INH (15:40)
--- NOTE | 2018-05-05 15:46 | DI.US.S_ITS ---
PROCEDURE: US OB LIMITED INDICATIONS: check baby, SOB OUTSIDE/PRIOR DATING DATA: Last menstrual period (LMP): 01/20/18. LMP-based estimated date of delivery (CORRIE): 10/27/18. First dating scan (date and location): 05/05/18. Estimated date of delivery (CORRIE) from first dating scan: 10/27/18. TECHNIQUE: Real-time scanning was performed of the fetus, with image documentation. COMPARISON: None. FINDINGS: A single living intrauterine gestation is present. Presentation: Breech Placenta: Placental position is anterior without evidence of previa. Amniotic fluid index: Within normal limits, subjectively. heart rate: 168 beats per minute. Maternal cervical canal: 2.4 cm in length. Biometry: BPD: 2.8 cm, 15 weeks 0 days. HC: 10.8 cm, 15 weeks 1 day. AC: 8.9 cm, 15 weeks 1 day. FL: 1.6 cm, 14 weeks 5 days. Other: No anatomic abnormalities are evident on the provided images. Formal anatomic survey was not performed, however. IMPRESSION: 1. Single live intrauterine at 15 weeks 0 days (current CORRIE 10/27/18) is concordant with the provided clinical dates. 2. No obvious abnormalities are evident. Dictated by: Miki Hutton M.D. on 05/05/2018 at 16:21 Approved by: Miki Hutton M.D. on 05/05/2018 at 16:24
[2018-05-05 15:49] LABS: Influenza A and B by PCR Rapid Negative (Negative)
[2018-05-05] MEDS: LACTATED RINGERS 1,000 ML 200 ML IV (17:32)
[2018-05-05] MEDS: ALBUTEROL/IPRATROPIUM 3 ML AMPUL INH (19:25)
[2018-05-05] MEDS: MAGNESIUM SULFATE 2 GM/50 ML PIGGYBACK IV (19:48)
--- NOTE | 2018-05-05 20:00 | PC.NURSE ---
consulted with Provider about pts HR and increasing SOB/wheezing. MAG iv ordered per provider. provider at bedside
[2018-05-05] MEDS: MORPHINE 4 MG/ML INJ IV ×2 (20:43→21:00)
--- NOTE | 2018-05-05 21:00 | PC.NURSE ---
provider at bedside, aware pt is c/o headache, SOB. HR 143 Provider aware. Morphine 4mg ordered IV. [facility] at bedside.
[2018-05-05 21:28] LABS: Adenovirus Not Detected (Not Detect); Bordetella pertussis Not Detected (Not Detect); Chlamydophila pneumoniae Not Detected (Not Detect); Coronavirus 229E Not Detected (Not Detect); Coronavirus HKU1 Not Detected (Not Detect); Coronavirus NL 63 Not Detected (Not Detect); Coronavirus OC43 Not Detected (Not Detect); Human Metapneumovirus Not Detected (Not Detect); Human Rhinovirus/Enterovirus Not Detected (Not Detect); Influenza A Not Detected (Not Detect); Influenza B Not Detected (Not Detect); Mycoplasma pneumoniae Not Detected (Not Detect); Parainfluenza Virus 1 Not Detected (Not Detect); Parainfluenza Virus 2 Not Detected (Not Detect); Parainfluenza Virus 3 Not Detected (Not Detect); Parainfluenza Virus 4 Not Detected (Not Detect); Respiratory Syncytial Virus Not Detected (Not Detect)
== END 2018-05-05 21:37 | disposition short-term general hospital (02) ==
PROVIDERS: Emergency Medicine; Emergency Provider Emergency Medicine
DX: J45.901 Unspecified asthma with (acute) exacerbation (principal); Z3A.15 15 weeks gestation of pregnancy
CPT/HCPCS: 36591; 71045; 76815; 80048; 81003; 83605; 83880; 85025; 87040; 87400; 87633; 93005; 93041; 94150; 94640; 96361; 96365; 96366; 96375; 96376; 99285; J0295; J2270; J7613

== ENCOUNTER 2018-07-30 01:14 | Emergency (ER) | payer OTHER, SELFPAY ==
[2018-07-30] VITALS (12 sets, daily range): BP systolic 110–143; BP diastolic 68–93; PULSE 107–125; RESP 16–25; TEMP 36.8; O2SAT 96–100; BMI 26.3
[2018-07-30] MEDS: ALBUTEROL 2.5 MG/3 ML NEB (ADULT) INH ×4 (01:28→02:37)
[2018-07-30] MEDS: predniSONE 20 MG TABLET 40 MG PO (02:27)
--- NOTE | 2018-07-30 02:53 | ED.ASTHMA ---
HPI - Asthma General Chief Complaint: Asthma Stated Complaint: asthma breathing difficulty Time Seen by Provider: 07/30/18 01:25 Source: patient Mode of arrival: ambulatory Limitations: no limitations History of Present Illness HPI Narrative: 28-year-old female at 27 weeks with long history of asthma presents with increased difficulty in breathing, shortness of breath and wheeze. She has maintained her daily regimen of albuterol, Advair, and DuoNeb and has required increasing rescue inhalers for the past day or 2. She denies any fever chills and has had a dry and hacking cough. She has had no nausea or vomiting. Patient is under the care of Ob at the [facility]. This is her 3rd visit to the emergency department during this the last of which required transfer to a higher level of care given her resistance to bronchodilators MD complaint: asthma attack Onset (ago): day(s) Severity: severe Associated symptoms: dry cough Treatments Prior to Arrival: inhaled bronchodilator and inhaled steroid Related Data Current Asthma Therapy: inhaled bronchodilator and inhaled steroid Home Medications Medication Instructions Recorded Confirmed albuterol sulfate [ProAir HFA] 1 - 2 puff INHALATION Q6H PRN 04/13/18 05/05/18 [id number]-zkzu 1 tab PO Q4H 04/29/18 05/05/18 fluticasone-salmeterol [Advair 1 puff INHALATION BID 04/29/18 05/05/18 Diskus] ipratropium-albuterol 1 neb INHALATION DIRECTED 04/29/18 05/05/18 [id number] fum-folic 1 tab PO DAILY 04/29/18 05/05/18 aspirin 81 mg PO DAILY 05/05/18 05/05/18 Previous Rx's Medication Instructions Recorded albuterol sulfate 2.5 mg INHALATION Q4-6H PRN #180 ml 07/30/18 ipratropium-albuterol 3 ml INHALATION QID #180 ml 07/30/18 nitrofurantoin macrocrystal 50 mg PO QID 7 Days #28 cap 07/30/18 prednisone 20 mg PO DAILY #5 tab 07/30/18 Allergies Allergy/AdvReac Type Severity Reaction Status Date / Time No Known Drug Allergies Allergy Verified 04/29/18 11:19 Review of Systems Constitutional Denies chills, Denies fever(s), Denies lethargy and Denies weakness Eyes Denies change in vision, Denies eye discharge, Denies irritation and Denies loss of vision ENT Ears, Nose, Mouth, and Throat: Denies change in voice, Denies neck pain and Denies sore throat Cardiovascular Denies chest pain, Denies irregular heart rhythm, Denies lightheadedness, Denies palpitations, Reports dyspnea, Denies dyspnea on exertion and Denies orthopnea Respiratory Reports dyspnea, Denies dyspnea on exertion and Reports wheezing Gastrointestinal Gastrointestinal: Denies abdominal pain, Denies change in bowel habits, Denies diarrhea, Denies nausea and Denies vomiting Genitourinary Denies hematuria, Denies flank pain, Denies urinary incontinence and Denies urinary urgency Musculoskeletal Denies neck pain Integumentary/Breasts Denies pruritus, Denies erythema, Denies rash and Denies wounds Neurologic Denies confusion, Denies loss of vision and Denies weakness Psychiatric Denies anxiety, Denies confusion, Denies depression, Denies homicidal ideation and Denies suicidal ideation Endocrine Denies palpitations Hematologic/Lymphatic Denies easy bruising Allergic/Immunologic Reports wheezing Exam Narrative Exam Narrative: GENERAL: 28-year-old female in obvious respiratory distress, inspiratory and expiratory wheeze, tachypnea and use of accessory muscles HEAD: Atraumatic. Normocephalic. No temporal or scalp tenderness. EYES: Pupils equal round and reactive. Extraocular motions intact. No scleral icterus. No injection or drainage. ENT: Nose without bleeding, purulent drainage or septal hematoma. Throat without erythema, tonsillar hypertrophy or exudate. Uvula midline. Airway patent. NECK: Trachea midline. No JVD or lymphadenopathy. Supple, nontender, no meningeal signs. CARDIOVASCULAR: tachycardic rate and regular rhythm without murmurs, gallops, or rubs. RESPIRATORY: Clear to auscultation. Breath sounds equal bilaterally. No wheezes, rales, or rhonchi. GASTROINTESTINAL: Abdomen soft, gravid uterus above umbilicus, nondistended. No hepato-splenomegaly, or palpable masses. No guarding. EXTREMITIES: No clubbing, cyanosis, or edema. No joint tenderness, effusion, or edema noted. BACK: Nontender without deformity or crepitance. No flank tenderness. NEURO: AOx3. SKIN: No rash or erythema. Initial Vital Signs Initial Vital Signs: Vital Signs Temperature 98.3 F 07/30/18 01:22 Pulse Rate 123 H 07/30/18 01:22 Respiratory Rate 18 07/30/18 01:22 Blood Pressure 143/93 H 07/30/18 01:22 Pulse Oximetry 99 07/30/18 01:22 [facility] Medical History Asthma (Acute) Preeclampsia (Acute) Surgical History No pertinent past surgical history (Acute) Social History Smoking Status: Never smoker Social History Smoking Status: Never smoker Course Course Narrative: minimal if any change with multiple bronchodilators Patient is now had 7 bronchodilators and is still wheezy and tachycardic at 1:30 a.m.. She feels a bit better magnesium, IV fluids and ultrasound are all pending Orders Ordered: Discontinued Medications Albuterol (Ventolin) 2.5 mg INH NOW ONE Stop: 07/30/18 01:28 Last Admin: 07/30/18 01:28 Dose: 2.5 mg Albuterol (Ventolin) 2.5 mg INH NOW ONE Stop: 07/30/18 01:32 Last Admin: 07/30/18 01:32 Dose: 2.5 mg Albuterol (Ventolin) 2.5 mg INH [id number] PRN PRN Reason: Shortness Of Breath Last Admin: 07/30/18 02:37 Dose: 2.5 mg Admin: 07/30/18 02:32 Dose: 2.5 mg Magnesium Sulfate (Magnesium Sulfate) 2 gm in 50 mls @ 25 mls/hr IV NOW ONE Stop: 07/30/18 04:59 Last Infusion: 07/30/18 05:51 Dose: 0 mls/hr Admin: 07/30/18 03:43 Dose: 25 mls/hr Sodium Chloride (Normal Saline 0.9%) 1,000 mls @ 1,000 mls/hr IV BOLUS ONE Stop: 07/30/18 04:32 Last Infusion: 07/30/18 06:15 Dose: 0 mls/hr Infusion: 07/30/18 05:57 Dose: 999 mls/hr Infusion: 07/30/18 03:45 Dose: 400 mls/hr Admin: 07/30/18 03:39 Dose: 1,000 mls/hr Nitrofurantoin Macrocrystals (Macrobid 100mg Prepack) 1 bottle MISC SEEINSTR ONE Stop: 07/30/18 05:58 Last Admin: 07/30/18 06:22 Dose: 1 bottle Prednisone (Deltasone) 40 mg PO NOW ONE Stop: 07/30/18 02:14 Last Admin: 07/30/18 02:27 Dose: 40 mg Vital Signs - 8 hr 07/30/18 01:22 07/30/18 01:29 07/30/18 01:32 Temperature 98.3 F Pulse Rate 123 H Respiratory Rate 18 Blood Pressure 143/93 H Blood Pressure [Left Arm] Pulse Oximetry 99 99 99 07/30/18 02:32 07/30/18 02:38 07/30/18 03:00 Temperature Pulse Rate 125 H Respiratory Rate 22 Blood Pressure Blood Pressure [Left Arm] 122/80 Pulse Oximetry 100 100 98 MDM - Asthma Lab Data Result diagrams: 07/30/18 03:00 07/30/18 05:49 Lab Results 07/30/18 07/30/18 07/30/18 Range/Units 02:54 03:00 03:00 WBC 14.1 H (4.5-11.0) X10^3/uL RBC 4.68 (4.0-5.2) X10^6/uL Hgb 13.3 (12.0-16.0) g/dL Hct 39.5 (36-46) % MCV 84.5 (80-100) fL MCH 28.5 (26-34) PG MCHC 33.7 (30-36) % RDW 13.9 (11.6-14.8) % Plt Count 220 (150-400) X10^3/uL Neut % (Auto) 82.3 H (50-75) % Lymph % (Auto) 8.0 L (25-40) % [place] % (Auto) 6.9 (3-14) % Eos % (Auto) 2.6 (2-4) % Baso % (Auto) 0.2 (0-2) % Neut # (Auto) 58484 H (9089-7522) /uL Lymph # (Auto) 1100 (2167-1509) /uL [place] # (Auto) 1000 H (0-900) /uL Eos # (Auto) 400 (0-450) /uL Baso # (Auto) 0 (0-100) /uL Sodium 137 (137-145) mmol/L Potassium 3.0 L (3.4-5.1) mmol/L Chloride 104 (98-107) mmol/L Carbon Dioxide 21 L (22-32) mmol/L BUN 6 L (7-17) mg/dL Creatinine 0.50 L (0.52-1.04) mg/dL Estimated GFR > 60.0 (>60) mL/min BUN/Creatinine Ratio 12.0 (6-22) Glucose 97 (70-100) mg/dL Calcium 9.3 (8.4-10.2) mg/dL Procalcitonin (<0.5) ng/mL Urine RBC (0-5/HPF) Urine WBC (0-5/HPF) Ur Squamous Epith Cells Urine Bacteria (None) Urine Mucus (Negative) Ur Culture Indicated? Influenza A & B (PCR) Negative (Negative) 07/30/18 07/30/18 07/30/18 Range/Units 03:00 05:40 05:49 WBC (4.5-11.0) X10^3/uL RBC (4.0-5.2) X10^6/uL Hgb (12.0-16.0) g/dL Hct (36-46) % MCV (80-100) fL MCH (26-34) PG MCHC (30-36) % RDW (11.6-14.8) % Plt Count (150-400) X10^3/uL Neut % (Auto) (50-75) % Lymph % (Auto) (25-40) % [place] % (Auto) (3-14) % Eos % (Auto) (2-4) % Baso % (Auto) (0-2) % Neut # (Auto) (8906-5702) /uL Lymph # (Auto) (3858-3853) /uL [place] # (Auto) (0-900) /uL Eos # (Auto) (0-450) /uL Baso # (Auto) (0-100) /uL Sodium (137-145) mmol/L Potassium 3.7 (3.4-5.1) mmol/L Chloride (98-107) mmol/L Carbon Dioxide (22-32) mmol/L BUN (7-17) mg/dL Creatinine (0.52-1.04) mg/dL Estimated GFR (>60) mL/min BUN/Creatinine Ratio (6-22) Glucose (70-100) mg/dL Calcium (8.4-10.2) mg/dL Procalcitonin < 0.05 (<0.5) ng/mL Urine RBC None seen (0-5/HPF) Urine WBC 0-1/hpf (0-5/HPF) Ur Squamous Epith Cells 5-10 /hpf H Urine Bacteria Few (2-10) H (None) Urine Mucus 2+ H (Negative) Ur Culture Indicated? Cult not indicated Influenza A & B (PCR) (Negative) Urine Dip Bedside Urine Glucose Negative Bedside Urine Bilirubin - Negative Bedside Urine Ketone ++ 40 Urine Specific [place] 1.030 Bedside Urine Occult Blood - Negative Bedside Urine pH 6.0 Bedside Urine Protein + 30 Bedside Urine Urobilinogen +/- 1mg Bedside Urine Nitrite - Negative Bedside Urine Leukocytes +/- 15 Esterase MDM Narrative Medical decision making narrative: Patient with history of asthma is at 27 weeks and has had significant trouble with asthma during this . She has used multiple bronchodilators at home without much in the way of relief. She was given multiple bronchodilators, steroids and magnesium here and after these therapies and fluid she felt tremendous relief. She was able to ambulate without much in the way of difficulty and felt fine going home. She was given extensive return precautions and has a sound understanding of these precautions. She has had her questions answered to her apparent satisfaction. Alternative diagnoses considered including pneumonia and pulmonary embolism. She has no pain, cough and bilateral lower extremity DVT studies are normal. Will withhold any pulmonary embolism study for now Discharge Plan Departure Patient Disposition: Home Clinical Impression: Asthma with acute exacerbation Qualifiers: Asthma severity: severe Asthma persistence: persistent Qualified Code(s): J45.51 - Severe persistent asthma with (acute) exacerbation UTI (urinary tract infection) Qualifiers: Urinary tract infection type: acute cystitis Hematuria presence: without hematuria Qualified Code(s): N30.00 - Acute cystitis without hematuria Discharge Date/Time: 07/30/18 06:29 Interventions: ED Discharge Assessment Last Done: 07/30/18 06:30 Instructions: DI for Asthma -- Adult Activity Restrictions/Additional Instructions: *You have been diagnosed with [ asthma exacerbation ] *What to do: *Take medications as directed *Follow up with your primary care provider in 2-3 days, call for an appointment. Let them know you were seen in the Emergency Department and that we ask that you be seen in follow up *Return to ER if you should have any new, worsening or concerning symptoms such as worsening shortness of breath, fever, chills, or other bothersome symptoms Prescriptions: New ipratropium-albuterol 0.5 mg-3 mg(2.5 mg base)/3 mL solution for nebulization 3 ml INHALATION QID Qty: 180 RF: 0 albuterol sulfate 2.5 mg /3 mL (0.083 %) solution for nebulization 2.5 mg INHALATION Q4-6H PRN (Reason: shortness of breath or wheezing) Qty: 180 RF: 0 prednisone 20 mg tablet 20 mg PO DAILY Qty: 5 RF: 0 nitrofurantoin macrocrystal 50 mg capsule 50 mg PO QID 7 Days Qty: 28 RF: 0 No Action albuterol sulfate [ProAir HFA] 90 mcg/actuation Hfa Aerosol Inhaler 1 - 2 puff INHALATION Q6H PRN (Reason: Wheezing) RF: 0 fluticasone-salmeterol [Advair Diskus] 250-50 mcg/dose blister with device 1 puff Inhalation BID RF: 0 yqkkpnlllw-suhsfpuzscxnm-oilm 50-325-40 mg tablet 1 tab PO Q4H RF: 0 ipratropium-albuterol 0.5 mg-3 mg(2.5 mg base)/3 mL solution for nebulization 1 neb Inhalation DIRECTED RF: 0 jvjf17-agwd fum-folic 27 mg iron- 800 mcg tablet 1 tab PO DAILY RF: 0 aspirin 81 mg Tablet,Delayed Release (Dr/Ec) 81 mg PO DAILY RF: 0
--- NOTE | 2018-07-30 02:57 | ED_ITS ---
HPI - Asthma General Chief Complaint: Asthma Stated Complaint: asthma breathing difficulty Time Seen by Provider: 07/30/18 01:25 Source: patient Mode of arrival: ambulatory Limitations: no limitations History of Present Illness HPI Narrative: 28-year-old female at 27 weeks with long history of asthma presents with increased difficulty in breathing, shortness of breath and wheeze. She has maintained her daily regimen of albuterol, Advair, and DuoNeb and has required increasing rescue inhalers for the past day or 2. She denies any fever chills and has had a dry and hacking cough. She has had no nausea or vomiting. Patient is under the care of Ob at the [facility]. This is her 3rd visit to the emergency department during this the last of which required transfer to a higher level of care given her resistance to bronchodilators MD complaint: asthma attack Onset (ago): day(s) Severity: severe Associated symptoms: dry cough Treatments Prior to Arrival: inhaled bronchodilator and inhaled steroid Related Data Current Asthma Therapy: inhaled bronchodilator and inhaled steroid Home Medications Medication Instructions Recorded Confirmed albuterol sulfate [ProAir HFA] 1 - 2 puff INHALATION Q6H PRN 04/13/18 05/05/18 [id number]-paxq 1 tab PO Q4H 04/29/18 05/05/18 fluticasone-salmeterol [Advair 1 puff INHALATION BID 04/29/18 05/05/18 Diskus] ipratropium-albuterol 1 neb INHALATION DIRECTED 04/29/18 05/05/18 [id number]-selv fum-folic 1 tab PO DAILY 04/29/18 05/05/18 aspirin 81 mg PO DAILY 05/05/18 05/05/18 Previous Rx's Medication Instructions Recorded albuterol sulfate 2.5 mg INHALATION Q4-6H PRN #180 ml 07/30/18 ipratropium-albuterol 3 ml INHALATION QID #180 ml 07/30/18 nitrofurantoin macrocrystal 50 mg PO QID 7 Days #28 cap 07/30/18 prednisone 20 mg PO DAILY #5 tab 07/30/18 Allergies Allergy/AdvReac Type Severity Reaction Status Date / Time No Known Drug Allergies Allergy Verified 04/29/18 11:19 Review of Systems Constitutional Denies chills, Denies fever(s), Denies lethargy and Denies weakness Eyes Denies change in vision, Denies eye discharge, Denies irritation and Denies loss of vision ENT Ears, Nose, Mouth, and Throat: Denies change in voice, Denies neck pain and Denies sore throat Cardiovascular Denies chest pain, Denies irregular heart rhythm, Denies lightheadedness, Denies palpitations, Reports dyspnea, Denies dyspnea on exertion and Denies orthopnea Respiratory Reports dyspnea, Denies dyspnea on exertion and Reports wheezing Gastrointestinal Gastrointestinal: Denies abdominal pain, Denies change in bowel habits, Denies diarrhea, Denies nausea and Denies vomiting Genitourinary Denies hematuria, Denies flank pain, Denies urinary incontinence and Denies ur inary urgency Musculoskeletal Denies neck pain Integumentary/Breasts Denies pruritus, Denies erythema, Denies rash and Denies wounds Neurologic Denies confusion, Denies loss of vision and Denies weakness Psychiatric Denies anxiety, Denies confusion, Denies depression, Denies homicidal ideation and Denies suicidal ideation Endocrine Denies palpitations Hematologic/Lymphatic Denies easy bruising Allergic/Immunologic Reports wheezing Exam Narrative Exam Narrative: GENERAL: 28-year-old female in obvious respiratory distress, inspiratory and expiratory wheeze, tachypnea and use of accessory muscles HEAD: Atraumatic. Normocephalic. No temporal or scalp tenderness. EYES: Pupils equal round and reactive. Extraocular motions intact. No scleral icterus. No injection or drainage. ENT: Nose without bleeding, purulent drainage or septal hematoma. Throat without erythema, tonsillar hypertrophy or exudate. Uvula midline. Airway patent. NECK: Trachea midline. No JVD or lymphadenopathy. Supple, nontender, no meningeal signs. CARDIOVASCULAR: tachycardic rate and regular rhythm without murmurs, gallops, or rubs. RESPIRATORY: Clear to auscultation. Breath sounds equal bilaterally. No wheezes, rales, or rhonchi. GASTROINTESTINAL: Abdomen soft, gravid uterus above umbilicus, nondistended. No hepato-splenomegaly, or palpable masses. No guarding. EXTREMITIES: No clubbing, cyanosis, or edema. No joint tenderness, effusion, or edema noted. BACK: Nontender without deformity or crepitance. No flank tenderness. NEURO: AOx3. SKIN: No rash or erythema. Initial Vital Signs Initial Vital Signs: Vital Signs Temperature 98.3 F 07/30/18 01:22 Pulse Rate 123 H 07/30/18 01:22 Respiratory Rate 18 07/30/18 01:22 Blood Pressure 143/93 H 07/30/18 01:22 Pulse Oximetry 99 07/30/18 01:22 [facility] Medical History Asthma (Acute) Preeclampsia (Acute) Surgical History No pertinent past surgical history (Acute) Social History Smoking Status: Never smoker Social History Smoking Status: Never smoker Course Course Narrative: minimal if any change with multiple bronchodilators Patient is now had 7 bronchodilators and is still wheezy and tachycardic at 1:30 a.m.. She feels a bit better magnesium, IV fluids and ultrasound are all pending Orders Ordered: Discontinued Medications Albuterol (Ventolin) 2.5 mg INH NOW ONE Stop: 07/30/18 01:28 Last Admin: 07/30/18 01:28 Dose: 2.5 mg Albuterol (Ventolin) 2.5 mg INH NOW ONE Stop: 07/30/18 01:32 Last Admin: 07/30/18 01:32 Dose: 2.5 mg Albuterol (Ventolin) 2.5 mg INH [id number] PRN PRN Reason: Shortness Of Breath Last Admin: 07/30/18 02:37 Dose: 2.5 mg Admin: 07/30/18 02:32 Dose: 2.5 mg Magnesium Sulfate (Magnesium Sulfate) 2 gm in 50 mls @ 25 mls/hr IV NOW ONE Stop: 07/30/18 04:59 Last Infusion: 07/30/18 05:51 Dose: 0 mls/hr Admin: 07/30/18 03:43 Dose: 25 mls/hr Sodium Chloride (Normal Saline 0.9%) 1,000 mls @ 1,000 mls/hr IV BOLUS ONE Stop: 07/30/18 04:32 Last Infusion: 07/30/18 06:15 Dose: 0 mls/hr Infusion: 07/30/18 05:57 Dose: 999 mls/hr Infusion: 07/30/18 03:45 Dose: 400 mls/hr Admin: 07/30/18 03:39 Dose: 1,000 mls/hr Nitrofurantoin Macrocrystals (Macrobid 100mg Prepack) 1 bottle MISC SEEINSTR ONE Stop: 07/30/18 05:58 Last Admin: 07/30/18 06:22 Dose: 1 bottle Prednisone (Deltasone) 40 mg PO NOW ONE Stop: 07/30/18 02:14 Last Admin: 07/30/18 02:27 Dose: 40 mg Vital Signs - 8 hr 07/30/18 01:22 07/30/18 01:29 07/30/18 01:32 Temperature 98.3 F Pulse Rate 123 H Respiratory Rate 18 Blood Pressure 143/93 H Blood Pressure [Left Arm] Pulse Oximetry 99 99 99 07/30/18 02:32 07/30/18 02:38 07/30/18 03:00 Temperature Pulse Rate 125 H Respiratory Rate 22 Blood Pressure Blood Pressure [Left Arm] 122/80 Pulse Oximetry 100 100 98 MDM - Asthma Lab Data Result diagrams: 07/30/18 03:00 07/30/18 05:49 Lab Results 07/30/18 07/30/18 07/30/18 Range/Units 02:54 03:00 03:00 WBC 14.1 H (4.5-11.0) X10^3/uL RBC 4.68 (4.0-5.2) X10^6/uL Hgb 13.3 (12.0-16.0) g/dL Hct 39.5 (36-46) % MCV 84.5 (80-100) fL MCH 28.5 (26-34) PG MCHC 33.7 (30-36) % RDW 13.9 (11.6-14.8) % Plt Count 220 (150-400) X10^3/uL Neut % (Auto) 82.3 H (50-75) % Lymph % (Auto) 8.0 L (25-40) % [place] % (Auto) 6.9 (3-14) % Eos % (Auto) 2.6 (2-4) % Baso % (Auto) 0.2 (0-2) % Neut # (Auto) 19693 H (2721-8396) /uL Lymph # (Auto) 1100 (8203-1525) /uL [place] # (Auto) 1000 H (0-900) /uL Eos # (Auto) 400 (0-450) /uL Baso # (Auto) 0 (0-100) /uL Sodium 137 (137-145) mmol/L Potassium 3.0 L (3.4-5.1) mmol/L Chloride 104 (98-107) mmol/L Carbon Dioxide 21 L (22-32) mmol/L BUN 6 L (7-17) mg/dL Creatinine 0.50 L (0.52-1.04) mg/dL Estimated GFR > 60.0 (>60) mL/min BUN/Creatinine Ratio 12.0 (6-22) Glucose 97 (70-100) mg/dL Calcium 9.3 (8.4-10.2) mg/dL Procalcitonin (<0.5) ng/mL Urine RBC (0-5/HPF) Urine WBC (0-5/HPF) Ur Squamous Epith Cells Urine Bacteria (None) Urine Mucus (Negative) Ur Culture Indicated? Influenza A & B (PCR) Negative (Negative) 07/30/18 07/30/18 07/30/18 Range/Units 03:00 05:40 05:49 WBC (4.5-11.0) X10^3/uL RBC (4.0-5.2) X10^6/uL Hgb (12.0-16.0) g/dL Hct (36-46) % MCV (80-100) fL MCH (26-34) PG MCHC (30-36) % RDW (11.6-14.8) % Plt Count (150-400) X10^3/uL Neut % (Auto) (50-75) % Lymph % (Auto) (25-40) % [place] % (Auto) (3-14) % Eos % (Auto) (2-4) % Baso % (Auto) (0-2) % Neut # (Auto) (7780-3105) /uL Lymph # (Auto) (0565-3433) /uL [place] # (Auto) (0-900) /uL Eos # (Auto) (0-450) /uL Baso # (Auto) (0-100) /uL Sodium (137-145) mmol/L Potassium 3.7 (3.4-5.1) mmol/L Chloride (98-107) mmol/L Carbon Dioxide (22-32) mmol/L BUN (7-17) mg/dL Creatinine (0.52-1.04) mg/dL Estimated GFR (>60) mL/min BUN/Creatinine Ratio (6-22) Glucose (70-100) mg/dL Calcium (8.4-10.2) mg/dL Procalcitonin < 0.05 (<0.5) ng/mL Urine RBC None seen (0-5/HPF) Urine WBC 0-1/hpf (0-5/HPF) Ur Squamous Epith Cells 5-10 /hpf H Urine Bacteria Few (2-10) H (None) Urine Mucus 2+ H (Negative) Ur Culture Indicated? Cult not indicated Influenza A & B (PCR) (Negative) Urine Dip Bedside Urine Glucose Negative Bedside Urine Bilirubin - Negative Bedside Urine Ketone ++ 40 Urine Specific [place] 1.030 Bedside Urine Occult Blood - Negative Bedside Urine pH 6.0 Bedside Urine Protein + 30 Bedside Urine Urobilinogen +/- 1mg Bedside Urine Nitrite - Negative Bedside Urine Leukocytes +/- 15 Esterase MDM Narrative Medical decision making narrative: Patient with history of asthma is at 27 weeks and has had significant trouble with asthma during this . She has used multiple bronchodilators at home without much in the way of relief. She was given multiple bronchodilators, steroids and magnesium here and after these therapies and fluid she felt tremendous relief. She was able to ambulate without much in the way of difficulty and felt fine going home. She was given extensive return precautions and has a sound understanding of these precautions. She has had her questions answered to her apparent satisfaction. Alternative d iagnoses considered including pneumonia and pulmonary embolism. She has no pain, cough and bilateral lower extremity DVT studies are normal. Will withhold any pulmonary embolism study for now Discharge Plan Departure Patient Disposition: Home Clinical Impression: Asthma with acute exacerbation Qualifiers: Asthma severity: severe Asthma persistence: persistent Qualified Code(s): J45.51 - Severe persistent asthma with (acute) exacerbation UTI (urinary tract infection) Qualifiers: Urinary tract infection type: acute cystitis Hematuria presence: without hematuria Qualified Code(s): N30.00 - Acute cystitis without hematuria Discharge Date/Time: 07/30/18 06:29 Interventions: ED Discharge Assessment Last Done: 07/30/18 06:30 Instructions: DI for Asthma -- Adult Activity Restrictions/Additional Instructions: *You have been diagnosed with [ asthma exacerbation ] *What to do: *Take medications as directed *Follow up with your primary care provider in 2-3 days, call for an appointment. Let them know you were seen in the Emergency Department and that we ask that you be seen in follow up *Return to ER if you should have any new, worsening or concerning symptoms such as worsening shortness of breath, fever, chills, or other bothersome symptoms Prescriptions: New ipratropium-albuterol 0.5 mg-3 mg(2.5 mg base)/3 mL solution for nebulization 3 ml INHALATION QID Qty: 180 RF: 0 albuterol sulfate 2.5 mg /3 mL (0.083 %) solution for nebulization 2.5 mg INHALATION Q4-6H PRN (Reason: shortness of breath or wheezing) Qty: 180 RF: 0 prednisone 20 mg tablet 20 mg PO DAILY Qty: 5 RF: 0 nitrofurantoin macrocrystal 50 mg capsule 50 mg PO QID 7 Days Qty: 28 RF: 0 No Action albuterol sulfate [ProAir HFA] 90 mcg/actuation Hfa Aerosol Inhaler 1 - 2 puff INHALATION Q6H PRN (Reason: Wheezing) RF: 0 fluticasone-salmeterol [Advair Diskus] 250-50 mcg/dose blister with device 1 puff Inhalation BID RF: 0 ujkucibzux-bzmpmovrsllfg-uwka 50-325-40 mg tablet 1 tab PO Q4H RF: 0 ipratropium-albuterol 0.5 mg-3 mg(2.5 mg base)/3 mL solution for nebulization 1 neb Inhalation DIRECTED RF: 0 heyf43-brlz fum-folic 27 mg iron- 800 mcg tablet 1 tab PO DAILY RF: 0 aspirin 81 mg Tablet,Delayed Release (Dr/Ec) 81 mg PO DAILY RF: 0
--- NOTE | 2018-07-30 03:00 | DI.US.S_ITS ---
PROCEDURE: US PERIPH VENOUS LOW EXTREM BI INDICATIONS: SOB, wheeze TECHNIQUE: Real-time imaging, as well as color and pulse Doppler interrogation, were performed of the deep veins of both legs from the inguinal ligament to the popliteal fossa. COMPARISON: None. FINDINGS: The deep veins are normally compressible, and free of intraluminal thrombus. Color and pulse Doppler demonstrate normal phasic intravascular flow. There is normal augmentation response to distal compression maneuver. IMPRESSION: No evidence of deep vein thrombosis involving either the right or left lower extremities. Dictated by: Coco Dee MD, PhD on 07/30/2018 at 7:09 Approved by: Coco Dee MD, PhD on 07/30/2018 at 7:10
[2018-07-30 03:12] LABS: Add Manual Diff / Slide Review NO; Basophils Absolute Auto 0 /uL (0-100); Basophils Percent Auto 0.2 % (0-2); Eosinophils Absolute Auto 400 /uL (0-450); Eosinophils Percent Auto 2.6 % (2-4); Hematocrit 39.5 % (36-46); Hemoglobin 13.3 g/dL (12.0-16.0); Lymphocytes Absolute Auto 1100 /uL (1100-4500); Mean Corpuscular HGB Conc 33.7 % (30-36); Mean Corpuscular Hemoglobin 28.5 PG (26-34); Mean Corpuscular Volume 84.5 fL (80-100); Monocytes Absolute Auto 1000 /uL (0-900); Monocytes Percent Auto 6.9 % (3-14); Neutrophils Absolute Auto 11600 /uL (1500-7000); Neutrophils Percent Auto 82.3 % (50-75); Platelet Count 220 X10^3/uL (150-400); Red Blood Cell Count 4.68 X10^6/uL (4.0-5.2); Red Cell Distribution Width 13.9 % (11.6-14.8); White Blood Cell Count 14.1 X10^3/uL (4.5-11.0)
[2018-07-30 03:19] LABS: Blood Urea Nitrogen 6 mg/dL (7-17); Calcium 9.3 mg/dL (8.4-10.2); Carbon Dioxide 21 mmol/L (22-32); Chloride 104 mmol/L (98-107); Estimated Glomerular Filt Rate > 60.0 mL/min (>60); Glucose 97 mg/dL (70-100); HEMOLYSIS < 15 (0-50); Sodium 137 mmol/L (137-145)
[2018-07-30 03:28] LABS: Influenza A and B by PCR Rapid Negative (Negative)
[2018-07-30 03:36] LABS: Procalcitonin < 0.05 ng/mL (<0.5)
[2018-07-30] MEDS: SODIUM CHLORIDE 0.9% 1,000 ML 1000 ML IV (03:39)
[2018-07-30] MEDS: MAGNESIUM SULFATE 2 GM/50 ML PIGGYBACK IV (03:43)
--- NOTE | 2018-07-30 05:15 | PC.NURSE ---
center came and did FHT, FHR 140.
[2018-07-30 05:57] LABS: RBC Urine None Seen (0-5/HPF)
[2018-07-30 06:07] LABS: HEMOLYSIS < 15 (0-50); Potassium 3.7 mmol/L (3.4-5.1)
[2018-07-30 06:08] LABS: Bacteria Urine Few (2-10); Mucus Urine 2+ (Negative); Squamous Epithelial Cell Urine 5-10 /HPF
[2018-07-30 06:09] LABS: Culture Indicated Urine Cult Not Indicated; WBC Urine 0-1/HPF (0-5/HPF)
[2018-07-30] MEDS: NITROFURANTOIN 100MG PREPACK 1 BOTTLE MISC (06:22)
== END 2018-07-30 06:29 | disposition home or self-care (01) ==
PROVIDERS: Emergency Provider Emergency Medicine
DX: J45.51 Severe persistent asthma with (acute) exacerbation (principal); N30.00 Acute cystitis without hematuria; Z3A.27 27 weeks gestation of pregnancy
CPT/HCPCS: 36415; 36591; 80048; 81003; 81015; 84132; 84145; 85025; 87400; 93005; 93970; 94150; 94640; J7613

== ENCOUNTER 2018-07-30 19:34 | Emergency (ER) | payer OTHER, SELFPAY ==
[2018-07-30] VITALS (12 sets, daily range): BP systolic 99–150; BP diastolic 51–83; PULSE 129–151; RESP 18–32; TEMP 36.8–37.2; O2SAT 92–100; BMI 26.3
--- NOTE | 2018-07-30 20:18 | DI.RAD.S_ITS ---
PROCEDURE: XR CHEST 1V INDICATIONS: severe SOB TECHNIQUE: One view of the chest was acquired. COMPARISON: None. FINDINGS: Surgical changes and devices: None. Lungs and pleura: Lungs are clear. No pleural effusions or pneumothorax. Mediastinum: Mediastinal contours appear normal. Heart size is normal. Bones and chest wall: No suspicious bony lesions. Overlying soft tissues appear unremarkable. IMPRESSION: No acute disease Dictated by: Olvin Overton M.D. on 07/30/2018 at 21:51 Approved by: Olvin Overton M.D. on 07/30/2018 at 21:51
[2018-07-30] MEDS: ALBUTEROL/IPRATROPIUM 3 ML AMPUL INH ×2 (20:24→20:40)
[2018-07-30] MEDS: ALBUTEROL 2.5 MG/3 ML NEB (ADULT) INH ×2 (20:40→21:22)
[2018-07-30] MEDS: predniSONE 20 MG TABLET 60 MG PO (20:50)
[2018-07-30] MEDS: SODIUM CHLORIDE 0.9% 1,000 ML 1000 ML IV (20:51)
[2018-07-30] MEDS: MAGNESIUM SULFATE 2 GM/50 ML PIGGYBACK IV (20:51)
[2018-07-30 21:10] LABS: Add Manual Diff / Slide Review NO; Basophils Absolute Auto 0 /uL (0-100); Eosinophils Absolute Auto 0 /uL (0-450); Hematocrit 38.5 % (36-46); Hemoglobin 12.7 g/dL (12.0-16.0); Lymphocytes Absolute Auto 600 /uL (1100-4500); Lymphocytes Percent Auto 3.8 % (25-40); Mean Corpuscular HGB Conc 32.9 % (30-36); Mean Corpuscular Hemoglobin 28.1 PG (26-34); Mean Corpuscular Volume 85.4 fL (80-100); Monocytes Absolute Auto 1200 /uL (0-900); Monocytes Percent Auto 7.3 % (3-14); Neutrophils Absolute Auto 14500 /uL (1500-7000); Neutrophils Percent Auto 88.9 % (50-75); Platelet Count 244 X10^3/uL (150-400); Red Blood Cell Count 4.51 X10^6/uL (4.0-5.2); Red Cell Distribution Width 13.7 % (11.6-14.8); White Blood Cell Count 16.3 X10^3/uL (4.5-11.0)
[2018-07-30] MEDS: ACETAMINOPHEN 325 MG TABLET 650 MG PO (21:16)
[2018-07-30] MEDS: ONDANSETRON 4 MG/2 ML INJ IV (21:16)
[2018-07-30 21:18] LABS: Blood Urea Nitrogen 4 mg/dL (7-17); Calcium 9.3 mg/dL (8.4-10.2); Carbon Dioxide 18 mmol/L (22-32); Chloride 107 mmol/L (98-107); Estimated Glomerular Filt Rate > 60.0 mL/min (>60); Glucose 97 mg/dL (70-100); HEMOLYSIS < 15 (0-50); Potassium 3.3 mmol/L (3.4-5.1); Sodium 137 mmol/L (137-145)
--- NOTE | 2018-07-30 21:42 | ED.ASTHMA ---
HPI - Asthma General Chief Complaint: Asthma Stated Complaint: ASTHMA IS WORSE THAN THIS AM Time Seen by Provider: 07/30/18 20:16 Source: patient and family Mode of arrival: ambulatory Limitations: no limitations History of Present Illness HPI Narrative: 28-year-old female nonsmoker with extensive history of asthma presents with worsening symptoms over the course of the day. She is a at 27 weeks and was seen last evening for the same. This is her fifth visit this for asthma exacerbation. She has been using albuterol, DuoNeb and has had steroids at home. Last evening it took multiple hours but she eventually improved after multiple nebulizers, steroids and magnesium. In March under similar circumstances she was transferred to [facility] as she was too complex and thought high risk to be at our facility. She denies any chest pain and has had no fever, chills or productive cough. She denies sore throat, N/V/D. MD complaint: asthma attack Onset (ago): hour(s) Severity: moderate Associated symptoms: dry cough Treatments Prior to Arrival: inhaled bronchodilator, inhaled steroid and oxygen Related Data Current Asthma Therapy: inhaled bronchodilator, inhaled steroid and recent oral steroid Home Medications Medication Instructions Recorded Confirmed albuterol sulfate [ProAir HFA] 1 - 2 puff INHALATION Q6H PRN 04/13/18 05/05/18 [id number] 1 tab PO Q4H 04/29/18 05/05/18 fluticasone-salmeterol [Advair 1 puff INHALATION BID 04/29/18 05/05/18 Diskus] ipratropium-albuterol 1 neb INHALATION DIRECTED 04/29/18 05/05/18 [id number] fum-folic 1 tab PO DAILY 04/29/18 05/05/18 aspirin 81 mg PO DAILY 05/05/18 05/05/18 Previous Rx's Medication Instructions Recorded albuterol sulfate 2.5 mg INHALATION Q4-6H PRN #180 ml 07/30/18 ipratropium-albuterol 3 ml INHALATION QID #180 ml 07/30/18 nitrofurantoin macrocrystal 50 mg PO QID 7 Days #28 cap 07/30/18 prednisone 20 mg PO DAILY #5 tab 07/30/18 Allergies Allergy/AdvReac Type Severity Reaction Status Date / Time No Known Drug Allergies Allergy Verified 04/29/18 11:19 Review of Systems Constitutional Denies chills, Denies fever(s), Denies lethargy and Denies weakness Eyes Denies change in vision, Denies eye discharge, Denies irritation and Denies loss of vision ENT Ears, Nose, Mouth, and Throat: Denies change in voice, Denies neck pain and Denies sore throat Cardiovascular Denies chest pain, Denies irregular heart rhythm, Reports lightheadedness, Reports palpitations, Reports dyspnea, Reports dyspnea on exertion and Denies orthopnea Respiratory Reports cough, Reports dyspnea, Reports dyspnea on exertion and Reports wheezing Gastrointestinal Gastrointestinal: Denies abdominal pain, Denies change in bowel habits, Denies diarrhea, Denies nausea and Denies vomiting Genitourinary Denies hematuria, Denies flank pain, Denies urinary incontinence and Denies urinary urgency Musculoskeletal Denies neck pain Integumentary/Breasts Denies pruritus, Denies erythema, Denies rash and Denies wounds Neurologic Denies confusion, Denies loss of vision and Denies weakness Psychiatric Denies anxiety, Denies confusion, Denies depression, Denies homicidal ideation and Denies suicidal ideation Endocrine Reports palpitations Hematologic/Lymphatic Denies easy bruising Allergic/Immunologic Reports wheezing Exam Narrative Exam Narrative: GENERAL: 28-year-old female in obvious significant respiratory distress, tachypneic tripoding HEAD: Atraumatic. Normocephalic. No temporal or scalp tenderness. EYES: Pupils equal round and reactive. Extraocular motions intact. No scleral icterus. No injection or drainage. ENT: Nose without bleeding, purulent drainage or septal hematoma. Throat without erythema, tonsillar hypertrophy or exudate. Uvula midline. Airway patent. NECK: Trachea midline. No JVD or lymphadenopathy. Supple, nontender, no meningeal signs. CARDIOVASCULAR: Regular rate and rhythm without murmurs, gallops, or rubs. RESPIRATORY: Significant respiratory effort, tachypneic with inspiratory and expiratory wheeze GASTROINTESTINAL: Abdomen soft, gravid with uterus above umbilicus. No hepato-splenomegaly, or palpable masses. No guarding. EXTREMITIES: No clubbing, cyanosis, or edema. No joint tenderness, effusion, or edema noted. BACK: Nontender without deformity or crepitance. No flank tenderness. NEURO: AOx3. SKIN: No rash or erythema. Initial Vital Signs Initial Vital Signs: Vital Signs Temperature 98.2 F 07/30/18 19:59 Pulse Rate 140 H 07/30/18 19:59 Respiratory Rate 28 H 07/30/18 19:59 Blood Pressure 150/73 H 07/30/18 19:59 Pulse Oximetry 98 07/30/18 19:59 [facility] Social History Smoking Status: Never smoker Course Orders Ordered: ED Orders 07/30/18 20:16 Arterial Blood Gas Stat 07/30/18 20:17 Measure peak expiratory flow POST TREATMENT Measure peak expiratory flow PRE TREATMENT RT Consult Eval and Treat STAT 07/30/18 20:18 XR chest 1V Stat 07/30/18 20:49 Basic Metabolic Panel Stat Complete Blood Count AUTO DIFF Stat 07/30/18 21:00 Arterial Blood Gas Stat Acetaminophen (Tylenol) 325 mg PO Q6HR PRN PRN Reason: As Needed for Fever/Mild Pain Last Admin: 07/31/18 00:41 Dose: 325 mg Ondansetron HCl (Zofran) 4 mg IV Q4HR PRN PRN Reason: Nausea And Vomiting Last Admin: 07/30/18 21:16 Dose: 4 mg Discontinued Medications Acetaminophen (Tylenol) 650 mg PO NOW ONE Stop: 07/30/18 21:14 Last Admin: 07/30/18 21:16 Dose: 650 mg Albuterol (Ventolin) 2.5 mg INH NOW ONE Stop: 07/30/18 20:40 Last Admin: 07/30/18 20:40 Dose: 2.5 mg Albuterol (Ventolin) 2.5 mg INH NOW ONE Stop: 07/30/18 21:22 Last Admin: 07/30/18 21:22 Dose: 2.5 mg Albuterol/Ipratropium (Duoneb) 3 ml INH NOW ONE Stop: 07/30/18 20:19 Last Admin: 07/30/18 20:24 Dose: 3 ml Albuterol/Ipratropium (Duoneb) 3 ml INH NOW ONE Stop: 07/30/18 20:17 Last Admin: 07/30/18 20:40 Dose: 3 ml Magnesium Sulfate (Magnesium Sulfate) 2 gm in 50 mls @ 25 mls/hr IV NOW ONE Stop: 07/30/18 22:15 Last Infusion: 07/31/18 00:08 Dose: 0 mls/hr Admin: 07/30/18 20:51 Dose: 25 mls/hr Sodium Chloride (Normal Saline 0.9%) 1,000 mls @ 1,000 mls/hr IV BOLUS ONE Stop: 07/30/18 21:15 Last Infusion: 07/31/18 00:07 Dose: 0 mls/hr Admin: 07/30/18 20:51 Dose: 1,000 mls/hr Levalbuterol HCl (Xopenex) 1.25 mg INH NOW ONE Stop: 07/30/18 23:21 Last Admin: 07/30/18 23:20 Dose: 1.25 mg Levalbuterol HCl (Xopenex) 1.25 mg INH NOW ONE Stop: 07/31/18 02:30 Last Admin: 07/31/18 02:30 Dose: 1.25 mg Prednisone (Deltasone) 60 mg PO NOW ONE Stop: 07/30/18 20:17 Last Admin: 07/30/18 20:50 Dose: 60 mg Reevaluation(s) Reevaluation #1: minimal, if any, improvement with repeated BDs, Mag ordered Reevaluation #2: ongoing BDs, Mag has helped work of breathing some. Xopenex administered in an effort to prevent some ongoing tachycardia Consultations Consultation #1: Rosa Vuong (Hospitalist at [facility] [place]) states this is not appropriate facility given complexity of patient and high risk call to [facility] given her history there, will talk to hospitalist after OB consult. OB cannot deliver prior to 34 weeks, and though that scenario is unlikely they must refuse admission next call is to the agronomy supervisor at [place] [facility] whom is confident that they can help I've spoken with Dr. Vickers (OB) whom will be accepting physician and will consult medicine to manage asthma Vital Signs - 8 hr 07/30/18 20:11 07/30/18 20:24 07/30/18 20:40 Temperature Pulse Rate 149 H 148 H 146 H Respiratory Rate 32 H 18 22 Blood Pressure [Right Arm] 126/83 Pulse Oximetry 96 96 96 07/30/18 21:00 07/30/18 21:16 07/30/18 21:22 Temperature 99.0 F Pulse Rate 140 H 150 H Respiratory Rate 22 21 Blood Pressure [Right Arm] 114/78 Pulse Oximetry 96 96 07/30/18 21:30 07/30/18 22:00 07/30/18 23:01 Temperature Pulse Rate 151 H 129 H 142 H Respiratory Rate 22 23 23 Blood Pressure [Right Arm] 110/59 L 117/57 L 99/66 Pulse Oximetry 100 94 93 07/30/18 23:21 07/30/18 23:30 07/31/18 00:00 Temperature Pulse Rate 131 H 135 H 132 H Respiratory Rate 24 30 H 24 Blood Pressure [Right Arm] 117/51 L 96/40 L Pulse Oximetry 94 92 98 07/31/18 00:55 07/31/18 01:01 07/31/18 01:50 Temperature Pulse Rate 122 H 124 H 115 H Respiratory Rate 18 25 H 18 Blood Pressure [Right Arm] 113/75 123/64 Pulse Oximetry 94 94 94 07/31/18 02:00 07/31/18 02:30 07/31/18 03:29 Temperature Pulse Rate 130 H 126 H 122 H Respiratory Rate 25 H 25 H 24 Blood Pressure [Right Arm] 90/68 107/48 L Pulse Oximetry 93 93 92 MDM - Asthma Medical Records Attestation: I reviewed the patient's medical records. Lab Data Attestation: I reviewed the patient's lab results. ABG ordered, but clearly a venous draw obtained Result diagrams: 07/30/18 20:49 07/30/18 20:49 Lab Results 07/30/18 07/30/18 07/30/18 Range/Units 20:49 20:49 21:00 WBC 16.3 H (4.5-11.0) X10^3/uL RBC 4.51 (4.0-5.2) X10^6/uL Hgb 12.7 (12.0-16.0) g/dL Hct 38.5 (36-46) % MCV 85.4 (80-100) fL MCH 28.1 (26-34) PG MCHC 32.9 (30-36) % RDW 13.7 (11.6-14.8) % Plt Count 244 (150-400) X10^3/uL Neut % (Auto) 88.9 H (50-75) % Lymph % (Auto) 3.8 L (25-40) % [place] % (Auto) 7.3 (3-14) % Eos % (Auto) 0.0 L (2-4) % Baso % (Auto) 0.0 (0-2) % Neut # (Auto) 04589 H (0790-0309) /uL Lymph # (Auto) 600 L (1796-5981) /uL [place] # (Auto) 1200 H (0-900) /uL Eos # (Auto) 0 (0-450) /uL Baso # (Auto) 0 (0-100) /uL ABG pH 7.42 (7.35-7.45) ABG pCO2 26.7 L (35-45) mmHg ABG pO2 26 L* (80-100) mmHg ABG HCO3 17 L (22-26) mmol/L ABG Total CO2 18 L (21-31) mmol/L ABG O2 Saturation 52 L* (95-100) % ABG Base Excess -7.0 L (-2-2) mmol/L FiO2 21 Sodium 137 (137-145) mmol/L Potassium 3.3 L (3.4-5.1) mmol/L Chloride 107 (98-107) mmol/L Carbon Dioxide 18 L (22-32) mmol/L BUN 4 L (7-17) mg/dL Creatinine 0.50 L (0.52-1.04) mg/dL Estimated GFR > 60.0 (>60) mL/min BUN/Creatinine Ratio 8.0 (6-22) Glucose 97 (70-100) mg/dL Calcium 9.3 (8.4-10.2) mg/dL Imaging Data Chest x-ray: My impression: [facility] Narrative Medical decision making narrative: 28F at 27 weeks with ongoing asthma exacerbation which has been incredibly difficult to manage. She has done a fantastic job as an outpatient, using her bronchodilators, steroids and inhaled steroids as directed. She returns with ongoing if not worsening symptoms. Her predicted peak flow is 490 and on arrival she was measuring 250 and in obvious respiratory distress. Throughout visit she has had multiple bronchodilators, Solu-Medrol as well as magnesium. She does have some improvement in her overall picture and is still wheezing, and working at rest but much more comfortable. However, any exertion tremendously increases her work of breathing. Her final peak flow actually decreased down to 180. She has been persistently tachycardic today and unlike yesterday responded little to fluids and improved work of breathing. A significant amount of bronchodilators are surely playing a role. We have considered other etiologies such as pneumonia but patient has a lack of fever, productive cough or chest x-ray findings. Pulmonary embolism was considered but patient has lack of chest pain, hemoptysis, lower extremity pain or swelling. Additionally yesterday the patient had bilateral lower extremity DVT studies performed. We thank Rubin for their help in managing this complex patient. Patient needs ALS transfer as fluids are hanging and she needs cardiac monitoring for the drive Critical Care Time Critical Care Time: Yes Total Critical Care Time: 45 Attestation: The high probability of a clinically significant, sudden or life threatening deterioration of the [respiratory] system(s) required my full and direct attention, intervention and personal management. The aggregate critical care time [id number]. This time is in addition to time spent performing reported procedures but includes the following: [x] Data Review and interpretation [x] Patient assessment and monitoring of vital signs [x] Documentation [x] Medication orders and management Discharge Plan Departure Patient Disposition: [facility] Clinical Impression: Asthma with status asthmaticus Qualifiers: Asthma severity: severe Asthma persistence: persistent Qualified Code(s): J45.52 - Severe persistent asthma with status asthmaticus Prescriptions: No Action albuterol sulfate [ProAir HFA] 90 mcg/actuation Hfa Aerosol Inhaler 1 - 2 puff INHALATION Q6H PRN (Reason: Wheezing) RF: 0 fluticasone-salmeterol [Advair Diskus] 250-50 mcg/dose blister with device 1 puff Inhalation BID RF: 0 [id number]-[id number] 50-325-40 mg tablet 1 tab PO Q4H RF: 0 ipratropium-albuterol 0.5 mg-3 mg(2.5 mg base)/3 mL solution for nebulization 1 neb Inhalation DIRECTED RF: 0 [id number] fum-folic 27 mg iron- 800 mcg tablet 1 tab PO DAILY RF: 0 ipratropium-albuterol 0.5 mg-3 mg(2.5 mg base)/3 mL solution for nebulization 3 ml INHALATION QID Qty: 180 RF: 0 albuterol sulfate 2.5 mg /3 mL (0.083 %) solution for nebulization 2.5 mg INHALATION Q4-6H PRN (Reason: shortness of breath or wheezing) Qty: 180 RF: 0 prednisone 20 mg tablet 20 mg PO DAILY Qty: 5 RF: 0 nitrofurantoin macrocrystal 50 mg capsule 50 mg PO QID 7 Days Qty: 28 RF: 0 aspirin 81 mg Tablet,Delayed Release (Dr/Ec) 81 mg PO DAILY RF: 0
--- NOTE | 2018-07-30 21:45 | ED_ITS ---
HPI - Asthma General Chief Complaint: Asthma Stated Complaint: ASTHMA IS WORSE THAN THIS AM Time Seen by Provider: 07/30/18 20:16 Source: patient and family Mode of arrival: ambulatory Limitations: no limitations History of Present Illness HPI Narrative: 28-year-old female nonsmoker with extensive history of asthma presents with worsening symptoms over the course of the day. She is a at 27 weeks and was seen last evening for the same. This is her fifth visit this for asthma exacerbation. She has been using albuterol, DuoNeb and has had steroids at home. Last evening it took multiple hours but she eventually improved after multiple nebulizers, steroids and magnesium. In March under similar circumstances she was transferred to [facility] as she was too complex and thought high risk to be at our facility. She denies any chest pain and has had no fever, chills or productive cough. She denies sore throat, N/V/D. MD complaint: asthma attack Onset (ago): hour(s) Severity: moderate Associated symptoms: dry cough Treatments Prior to Arrival: inhaled bronchodilator, inhaled steroid and oxygen Related Data Current Asthma Therapy: inhaled bronchodilator, inhaled steroid and recent oral steroid Home Medications Medication Instructions Recorded Confirmed albuterol sulfate [ProAir HFA] 1 - 2 puff INHALATION Q6H PRN 04/13/18 05/05/18 [id number] 1 tab PO Q4H 04/29/18 05/05/18 fluticasone-salmeterol [Advair 1 puff INHALATION BID 04/29/18 05/05/18 Diskus] ipratropium-albuterol 1 neb INHALATION DIRECTED 04/29/18 05/05/18 [id number] fum-folic 1 tab PO DAILY 04/29/18 05/05/18 aspirin 81 mg PO DAILY 05/05/18 05/05/18 Previous Rx's Medication Instructions Recorded albuterol sulfate 2.5 mg INHALATION Q4-6H PRN #180 ml 07/30/18 ipratropium-albuterol 3 ml INHALATION QID #180 ml 07/30/18 nitrofurantoin macrocrystal 50 mg PO QID 7 Days #28 cap 07/30/18 prednisone 20 mg PO DAILY #5 tab 07/30/18 Allergies Allergy/AdvReac Type Severity Reaction Status Date / Time No Known Drug Allergies Allergy Verified 04/29/18 11:19 Review of Systems Constitutional Denies chills, Denies fever(s), Denies lethargy and Denies weakness Eyes Denies change in vision, Denies eye discharge, Denies irritation and Denies loss of vision ENT Ears, Nose, Mouth, and Throat: Denies change in voice, Denies neck pain and Denies sore throat Cardiovascular Denies chest pain, Denies irregular heart rhythm, Reports lightheadedness, Reports palpitations, Reports dyspnea, Reports dyspnea on exertion and Denies orthopnea Respiratory Reports cough, Reports dyspnea, Reports dyspnea on exertion and Reports wheezing Gastrointestinal Gastrointestinal: Denies abdominal pain, Denies change in bowel habits, Denies diarrhea, Denies nausea and Denies vomiting Genitourinary Denies hematuria, Denies flank pain, Denies urinary incontinence and Denies urinary urgency Musculoskeletal Denies neck pain Integumentary/Breasts Denies pruritus, Denies erythema, Denies rash and Denies wounds Neurologic Denies confusion, Denies loss of vision and Denies weakness Psychiatric Denies anxiety, Denies confusion, Denies depression, Denies homicidal ideation and Denies suicidal ideation Endocrine Reports palpitations Hematologic/Lymphatic Denies easy bruising Allergic/Immunologic Reports wheezing Exam Narrative Exam Narrative: GENERAL: 28-year-old female in obvious significant respiratory distress, tachypneic tripoding HEAD: Atraumatic. Normocephalic. No temporal or scalp tenderness. EYES: Pupils equal round and reactive. Extraocular motions intact. No scleral icterus. No injection or drainage. ENT: Nose without bleeding, purulent drainage or septal hematoma. Throat without erythema, tonsillar hypertrophy or exudate. Uvula midline. Airway patent. NECK: Trachea midline. No JVD or lymphadenopathy. Supple, nontender, no meni ngeal signs. CARDIOVASCULAR: Regular rate and rhythm without murmurs, gallops, or rubs. RESPIRATORY: Significant respiratory effort, tachypneic with inspiratory and expiratory wheeze GASTROINTESTINAL: Abdomen soft, gravid with uterus above umbilicus. No hepato- splenomegaly, or palpable masses. No guarding. EXTREMITIES: No clubbing, cyanosis, or edema. No joint tenderness, effusion, or edema noted. BACK: Nontender without deformity or crepitance. No flank tenderness. NEURO: AOx3. SKIN: No rash or erythema. Initial Vital Signs Initial Vital Signs: Vital Signs Temperature 98.2 F 07/30/18 19:59 Pulse Rate 140 H 07/30/18 19:59 Respiratory Rate 28 H 07/30/18 19:59 Blood Pressure 150/73 H 07/30/18 19:59 Pulse Oximetry 98 07/30/18 19:59 PFSH Social History Smoking Status: Never smoker Course Orders Ordered: ED Orders 07/30/18 20:16 Arterial Blood Gas Stat 07/30/18 20:17 Measure peak expiratory flow POST TREATMENT Measure peak expiratory flow PRE TREATMENT RT Consult Eval and Treat STAT 07/30/18 20:18 XR chest 1V Stat 07/30/18 20:49 Basic Metabolic Panel Stat Complete Blood Count AUTO DIFF Stat 07/30/18 21:00 Arterial Blood Gas Stat Acetaminophen (Tylenol) 325 mg PO Q6HR PRN PRN Reason: As Needed for Fever/Mild Pain Last Admin: 07/31/18 00:41 Dose: 325 mg Ondansetron HCl (Zofran) 4 mg IV Q4HR PRN PRN Reason: Nausea And Vomiting Last Admin: 07/30/18 21:16 Dose: 4 mg Discontinued Medications Acetaminophen (Tylenol) 650 mg PO NOW ONE Stop: 07/30/18 21:14 Last Admin: 07/30/18 21:16 Dose: 650 mg Albuterol (Ventolin) 2.5 mg INH NOW ONE Stop: 07/30/18 20:40 Last Admin: 07/30/18 20:40 Dose: 2.5 mg Albuterol (Ventolin) 2.5 mg INH NOW ONE Stop: 07/30/18 21:22 Last Admin: 07/30/18 21:22 Dose: 2.5 mg Albuterol/Ipratropium (Duoneb) 3 ml INH NOW ONE Stop: 07/30/18 20:19 Last Admin: 07/30/18 20:24 Dose: 3 ml Albuterol/Ipratropium (Duoneb) 3 ml INH NOW ONE Stop: 07/30/18 20:17 Last Admin: 07/30/18 20:40 Dose: 3 ml Magnesium Sulfate (Magnesium Sulfate) 2 gm in 50 mls @ 25 mls/hr IV NOW ONE Stop: 07/30/18 22:15 Last Infusion: 07/31/18 00:08 Dose: 0 mls/hr Admin: 07/30/18 20:51 Dose: 25 mls/hr Sodium Chloride (Normal Saline 0.9%) 1,000 mls @ 1,000 mls/hr IV BOLUS ONE Stop: 07/30/18 21:15 Last Infusion: 07/31/18 00:07 Dose: 0 mls/hr Admin: 07/30/18 20:51 Dose: 1,000 mls/hr Levalbuterol HCl (Xopenex) 1.25 mg INH NOW ONE Stop: 07/30/18 23:21 Last Admin: 07/30/18 23:20 Dose: 1.25 mg Levalbuterol HCl (Xopenex) 1.25 mg INH NOW ONE Stop: 07/31/18 02:30 Last Admin: 07/31/18 02:30 Dose: 1.25 mg Prednisone (Deltasone) 60 mg PO NOW ONE Stop: 07/30/18 20:17 Last Admin: 07/30/18 20:50 Dose: 60 mg Reevaluation(s) Reevaluation #1: minimal, if any, improvement with repeated BDs, Mag ordered Reevaluation #2: ongoing BDs, Mag has helped work of breathing some. Xopenex administered in an effort to prevent some ongoing tachycardia Consultations Consultation #1: Rosa Vuong (Hospitalist at [facility]) states this is not appropriate facility given complexity of patient and high risk call to [facility] given her history there, will talk to hospitalist after OB consult. OB cannot deliver prior to 34 weeks, and though that scenario is unlikely they must refuse admission next call is to the public works supervisor at [facility] whom is confident that they can help I've spoken with Dr. Vickers (OB) whom will be accepting physician and will consult medicine to manage asthma Vital Signs - 8 hr 07/30/18 20:11 07/30/18 20:24 07/30/18 20:40 Temperature Pulse Rate 149 H 148 H 146 H Respiratory Rate 32 H 18 22 Blood Pressure [Right Arm] 126/83 Pulse Oximetry 96 96 96 07/30/18 21:00 07/30/18 21:16 07/30/18 21:22 Temperature 99.0 F Pulse Rate 140 H 150 H Respiratory Rate 22 21 Blood Pressure [Right Arm] 114/78 Pulse Oximetry 96 96 07/30/18 21:30 07/30/18 22:00 07/30/18 23:01 Temperature Pulse Rate 151 H 129 H 142 H Respiratory Rate 22 23 23 Blood Pressure [Right Arm] 110/59 L 117/57 L 99/66 Pulse Oximetry 100 94 93 07/30/18 23:21 07/30/18 23:30 07/31/18 00:00 Temperature Pulse Rate 131 H 135 H 132 H Respiratory Rate 24 30 H 24 Blood Pressure [Right Arm] 117/51 L 96/40 L Pulse Oximetry 94 92 98 07/31/18 00:55 07/31/18 01:01 07/31/18 01:50 Temperature Pulse Rate 122 H 124 H 115 H Respiratory Rate 18 25 H 18 Blood Pressure [Right Arm] 113/75 123/64 Pulse Oximetry 94 94 94 07/31/18 02:00 07/31/18 02:30 07/31/18 03:29 Temperature Pulse Rate 130 H 126 H 122 H Respiratory Rate 25 H 25 H 24 Blood Pressure [Right Arm] 90/68 107/48 L Pulse Oximetry 93 93 92 MDM - Asthma Medical Records Attestation: I reviewed the patient's medical records. Lab Data Attestation: I reviewed the patient's lab results. ABG ordered, but clearly a venous draw obtained Result diagrams: 07/30/18 20:49 07/30/18 20:49 Lab Results 07/30/18 07/30/18 07/30/18 Range/Units 20:49 20:49 21:00 WBC 16.3 H (4.5-11.0) X10^3/uL RBC 4.51 (4.0-5.2) X10^6/uL Hgb 12.7 (12.0-16.0) g/dL Hct 38.5 (36-46) % MCV 85.4 (80-100) fL MCH 28.1 (26-34) PG MCHC 32.9 (30-36) % RDW 13.7 (11.6-14.8) % Plt Count 244 (150-400) X10^3/uL Neut % (Auto) 88.9 H (50-75) % Lymph % (Auto) 3.8 L (25-40) % Hoke % (Auto) 7.3 (3-14) % Eos % (Auto) 0.0 L (2-4) % Baso % (Auto) 0.0 (0-2) % Neut # (Auto) 29340 H (7894-8257) /uL Lymph # (Auto) 600 L (7394-7158) /uL Hoke # (Auto) 1200 H (0-900) /uL Eos # (Auto) 0 (0-450) /uL Baso # (Auto) 0 (0-100) /uL ABG pH 7.42 (7.35-7.45) ABG pCO2 26.7 L (35-45) mmHg ABG pO2 26 L* (80-100) mmHg ABG HCO3 17 L (22-26) mmol/L ABG Total CO2 18 L (21-31) mmol/L ABG O2 Saturation 52 L* (95-100) % ABG Base Excess -7.0 L (-2-2) mmol/L FiO2 21 Sodium 137 (137-145) mmol/L Potassium 3.3 L (3.4-5.1) mmol/L Chloride 107 (98-107) mmol/L Carbon Dioxide 18 L (22-32) mmol/L BUN 4 L (7-17) mg/dL Creatinine 0.50 L (0.52-1.04) mg/dL Estimated GFR > 60.0 (>60) mL/min BUN/Creatinine Ratio 8.0 (6-22) Glucose 97 (70-100) mg/dL Calcium 9.3 (8.4-10.2) mg/dL Imaging Data Chest x-ray: My impression: [facility] Narrative Medical decision making narrative: 28F at 27 weeks with ongoing asthma exacerbation which has been incredibly difficult to manage. She has done a fantastic job as an outpatient, using her bronchodilators, steroids and inhaled steroids as directed. She returns with ongoing if not worsening symptoms. Her predicted peak flow is 490 and on arrival she was measuring 250 and in obvious respiratory distress. Throughout visit she has had multiple bronchodilators, Solu-Medrol as well as magnesium. She does have some improvement in her overall picture and is still wheezing, and working at rest but much more comfortable. However, any exertion tremendously increases her work of breathing. Her final peak flow actually decreased down to 180. She has been persistently tachycardic today and unlike yesterday responded little to fluids and improved work of breathing. A significant amount of bronchodilators are surely playing a role. We have considered other etiologies such as pneumonia but patient has a lack of fever, productive cough or chest x-ray findings. Pulmonary embolism was considered but patient has lack of chest pain, hemoptysis, lower extremity pain or swelling. Additionally yesterday the patient had bilateral lower extremity DVT studies performed. We thank Rubin for their help in managing this complex patient. Patient needs ALS transfer as fluids are hanging and she needs cardiac monitoring for the drive Critical Care Time Critical Care Time: Yes Total Critical Care Time: 45 Attestation: The high probability of a clinically significant, sudden or life threatening deterioration of the [respiratory] system(s) required my full and direct attention, intervention and personal management. The aggregate critical care time [id number]. This time is in addition to time spent performing reported procedures but includes the following: [x] Data Review and interpretation [x] Patient assessment and monitoring of vital signs [x] Documentation [x] Medication orders and management Discharge Plan Departure Patient Disposition: [facility] Clinical Impression: Asthma with status asthmaticus Qualifiers: Asthma severity: severe Asthma persistence: persistent Qualified Code(s): J45.52 - Severe persistent asthma with status asthmaticus Prescriptions: No Action albuterol sulfate [ProAir HFA] 90 mcg/actuation Hfa Aerosol Inhaler 1 - 2 puff INHALATION Q6H PRN (Reason: Wheezing) RF: 0 fluticasone-salmeterol [Advair Diskus] 250-50 mcg/dose blister with device 1 puff Inhalation BID RF: 0 [id number]-nbugmqlakqclx-lblo 50-325-40 mg tablet 1 tab PO Q4H RF: 0 ipratropium-albuterol 0.5 mg-3 mg(2.5 mg base)/3 mL solution for nebulization 1 neb Inhalation DIRECTED RF: 0 [id number]-efyk fum-folic 27 mg iron- 800 mcg tablet 1 tab PO DAILY RF: 0 ipratropium-albuterol 0.5 mg-3 mg(2.5 mg base)/3 mL solution for nebulization 3 ml INHALATION QID Qty: 180 RF: 0 albuterol sulfate 2.5 mg /3 mL (0.083 %) solution for nebulization 2.5 mg INHALATION Q4-6H PRN (Reason: shortness of breath or wheezing) Qty: 180 RF: 0 prednisone 20 mg tablet 20 mg PO DAILY Qty: 5 RF: 0 nitrofurantoin macrocrystal 50 mg capsule 50 mg PO QID 7 Days Qty: 28 RF: 0 aspirin 81 mg Tablet,Delayed Release (Dr/Ec) 81 mg PO DAILY RF: 0
[2018-07-30 22:27] LABS: PCO2 ABG 26.7 mmHg (35-45); pH ABG 7.42 (7.35-7.45)
[2018-07-30 22:28] LABS: HCO3 ABG 17 mmol/L (22-26); PO2 ABG 26 mmHg (80-100); TCO2 ABG 18 mmol/L (21-31)
[2018-07-30 22:29] LABS: Fractionated Inspired Oxygen 21; Oxygen Saturation ABG 52 % (95-100)
--- NOTE | 2018-07-30 23:19 | PC.NURSE ---
ice pack provided for headache. pt reports feeling asthma worsening, reported to dr corral, orders rec'd and noted.
[2018-07-30] MEDS: LEVALBUTEROL 1.25 MG/0.5 ML NEB INH (23:20)
[2018-07-31] VITALS (8 sets, daily range): BP systolic 90–123; BP diastolic 40–75; PULSE 115–132; RESP 18–25; O2SAT 92–98
[2018-07-31] MEDS: ACETAMINOPHEN 325 MG TABLET PO (00:41)
[2018-07-31] MEDS: LEVALBUTEROL 1.25 MG/0.5 ML NEB INH ×2 (02:30→04:10)
== END 2018-07-31 04:29 | disposition short-term general hospital (02) ==
PROVIDERS: Emergency Provider Emergency Medicine
DX: O99.512 Diseases of the respiratory system complicating pregnancy, second trimester (principal); J45.51 Severe persistent asthma with (acute) exacerbation; Z3A.27 27 weeks gestation of pregnancy; N30.00 Acute cystitis without hematuria
CPT/HCPCS: 36415; 36591; 36600; 71045; 80048; 81003; 81015; 82805; 84132; 84145; 85025; 87400; 93005; 93970; 94150; 94640; 96360; 96361; 96374; 99285; J2405; J7613; J7614

== ENCOUNTER 2018-09-12 06:45 | Emergency (ER) | payer OTHER, SELFPAY ==
[2018-09-12 06:55] VITALS: BP 133/83; PULSE 116; RESP 20; TEMP 36.8; O2SAT 100; BMI 26.6
[2018-09-12] MEDS: DEXAMETHASONE 10 MG/ML VIAL PO (07:06)
--- NOTE | 2018-09-12 07:08 | ED.ASTHMA ---
HPI - Asthma General Chief Complaint: Asthma Stated Complaint: asthma symptoms x1 week Time Seen by Provider: 09/12/18 06:48 Source: patient and family Mode of arrival: ambulatory Limitations: no limitations History of Present Illness HPI Narrative: 28-year-old female at 33 weeks with extensive history of -induced asthma with this presents with cough, occasionally with yellowish sputum and significant wheezing. She admittedly recently ran out of her DuoNeb at home and her symptoms got bad at that point. She has been on prednisone 15 mg daily and recently was placed on a taper as directed by her primary care provider. [place] [facility] [place] [facility] [place] she is looking for another facility. She had preeclampsia with her last . This her asthma has been significantly worsened, and underlying thought is that it is related. She has required admission and transfer twice with magnesium drip. MD complaint: asthma attack and shortness of breath Onset (ago): hour(s) Severity: moderate Context: recent URI Associated symptoms: productive cough Related Data Current Asthma Therapy: inhaled bronchodilator and recent oral steroid Home Medications Medication Instructions Recorded Confirmed albuterol sulfate [ProAir HFA] 1 - 2 puff INHALATION Q6H PRN 04/13/18 05/05/18 [id number]-[id number]-[id number] 1 tab PO Q4H 04/29/18 05/05/18 fluticasone propion-salmeterol 1 puff INHALATION BID 04/29/18 05/05/18 [Advair Diskus] ipratropium-albuterol 1 neb INHALATION DIRECTED 04/29/18 05/05/18 [id number] fum-folic 1 tab PO DAILY 04/29/18 05/05/18 aspirin 81 mg PO DAILY 05/05/18 05/05/18 Previous Rx's Medication Instructions Recorded albuterol sulfate 2.5 mg INHALATION Q4-6H PRN #180 ml 07/30/18 ipratropium-albuterol 3 ml INHALATION QID #180 ml 07/30/18 prednisone 20 mg PO DAILY #5 tab 07/30/18 azithromycin See Rx Instructions .ROUTE 09/12/18 .COMPLEX #6 tab ipratropium-albuterol 3 ml INHALATION Q6-8H PRN #90 ml 09/12/18 Allergies Allergy/AdvReac Type Severity Reaction Status Date / Time No Known Drug Allergies Allergy Verified 04/29/18 11:19 Review of Systems Constitutional Denies chills, Denies fever(s), Denies lethargy and Denies weakness Eyes Denies change in vision, Denies eye discharge, Denies irritation and Denies loss of vision ENT Ears, Nose, Mouth, and Throat: Denies change in voice, Denies neck pain and Denies sore throat Cardiovascular Denies chest pain, Denies irregular heart rhythm, Denies lightheadedness, Denies palpitations, Denies dyspnea, Denies dyspnea on exertion and Denies orthopnea Respiratory Reports cough, Denies dyspnea, Denies dyspnea on exertion and Reports wheezing Gastrointestinal Gastrointestinal: Denies abdominal pain, Denies change in bowel habits, Denies diarrhea, Denies nausea and Denies vomiting Genitourinary Denies hematuria, Denies flank pain, Denies urinary incontinence and Denies urinary urgency Musculoskeletal Denies neck pain Integumentary/Breasts Denies pruritus, Denies erythema, Denies rash and Denies wounds Neurologic Denies confusion, Denies loss of vision and Denies weakness Psychiatric Denies anxiety, Denies confusion, Denies depression, Denies homicidal ideation and Denies suicidal ideation Endocrine Denies palpitations Hematologic/Lymphatic Denies easy bruising Allergic/Immunologic Reports wheezing Exam Narrative Exam Narrative: GENERAL: This is a well-nourished, well-developed patient, in mild distress. HEAD: Atraumatic. Normocephalic. No temporal or scalp tenderness. EYES: Pupils equal round and reactive. Extraocular motions intact. No scleral icterus. No injection or drainage. ENT: Nose without bleeding, purulent drainage or septal hematoma. Throat without erythema, tonsillar hypertrophy or exudate. Uvula midline. Airway patent. NECK: Trachea midline. No JVD or lymphadenopathy. Supple, nontender, no meningeal signs. CARDIOVASCULAR: Regular rate and rhythm without murmurs, gallops, or rubs. RESPIRATORY: Expiratory wheeze in all seo, patient in some respiratory distress and is a bit tachypneic but significantly better than any time I have personally seen her GASTROINTESTINAL: Abdomen gravid, non-tender. No hepato-splenomegaly, or palpable masses. No guarding. EXTREMITIES: No clubbing, cyanosis, or edema. No joint tenderness, effusion, or edema noted. BACK: Nontender without deformity or crepitance. No flank tenderness. NEURO: AOx3. SKIN: No rash or erythema. Initial Vital Signs Initial Vital Signs: Vital Signs Temperature 98.2 F 09/12/18 06:55 Pulse Rate 116 H 09/12/18 06:55 Respiratory Rate 20 09/12/18 06:55 Blood Pressure 133/83 09/12/18 06:55 Pulse Oximetry 100 09/12/18 06:55 PFSH Medical History Asthma (Acute) Preeclampsia (Acute) Surgical History No pertinent past surgical history (Acute) Social History Smoking Status: Never smoker Social History Smoking Status: Never smoker Course Course Narrative: Patient given multiple bronchodilators and has tremendous clinical and symptomatic improvement. Peak flow almost 390 on discharge. She is tachycardic but tends to become profoundly tachycardic with a extensive bronchodilator use. Pulmonary embolism considered but thought less likely given her profound improvement, lack of pain and other symptoms Orders Ordered: Discontinued Medications Albuterol (Ventolin) 2.5 mg INH NOW ONE Stop: 09/12/18 07:22 Last Admin: 09/12/18 07:38 Dose: Not Given Albuterol (Proventil 0.5% Neb Solution) 10 mg INH Q1H [place] Albuterol (Proventil 0.5% Neb Solution) 12 mg 0.15 mg/kg (12 mg) INH NOW ONE Stop: 09/12/18 08:02 Last Admin: 09/12/18 08:04 Dose: 10 mg Albuterol/Ipratropium (Duoneb) 3 ml INH NOW ONE Stop: 09/12/18 06:49 Last Admin: 09/12/18 07:19 Dose: 3 ml Albuterol/Ipratropium (Duoneb) 3 ml INH NOW ONE Stop: 09/12/18 07:04 Last Admin: 09/12/18 07:21 Dose: 3 ml Albuterol/Ipratropium (Duoneb) 3 ml INH NOW ONE Stop: 09/12/18 07:05 Last Admin: 09/12/18 07:38 Dose: Not Given Dexamethasone (Decadron) 10 mg PO NOW ONE Stop: 09/12/18 06:49 Last Admin: 09/12/18 07:06 Dose: 10 mg Vital Signs - 8 hr 09/12/18 06:55 09/12/18 07:23 09/12/18 07:52 Temperature 98.2 F Pulse Rate 116 H 111 H 118 H Respiratory Rate 20 Blood Pressure 133/83 Blood Pressure [Right Arm] Pulse Oximetry 100 98 99 09/12/18 08:28 09/12/18 09:22 Temperature Pulse Rate 136 H 118 H Respiratory Rate 20 20 Blood Pressure Blood Pressure [Right Arm] 108/72 Pulse Oximetry 100 98 MDM - Asthma MDM Narrative Medical decision making narrative: Multiple etiologies for patient's symptoms considered including: [Pneumonia, atypical pneumonia, pulmonary embolism, viral upper respiratory infection, asthma exacerbation. Atypical pneumonia strongly considered given lack of significant findings on exam to suggest typical pneumonia, lack of fever, but the presence of off colored sputum and worsening asthma.] Patient's symptoms improved or duration of stay with above-stated therapies. Findings and discharge diagnosis discussed with patient/family followed by verbalization of understanding Return precautions discussed with patient/family whom verbalize understanding. Discharge Plan Departure Patient Disposition: Home Clinical Impression: Atypical pneumonia Asthma with acute exacerbation Qualifiers: Asthma severity: mild Asthma persistence: intermittent Qualified Code(s): J45.21 - Mild intermittent asthma with (acute) exacerbation Discharge Date/Time: 09/12/18 09:27 Interventions: ED Discharge Assessment Last Done: 09/12/18 09:26 Instructions: Asthma -- Adult Activity Restrictions/Additional Instructions: *You have been diagnosed with [ asthma exacerbation, atypical pneumonia] *What to do: *Take medications as directed *Follow up with your primary care provider in 2-3 days, call for an appointment. Let them know you were seen in the Emergency Department and that we ask that you be seen in follow up *Return to ER if you should have any new, worsening or concerning symptoms Prescriptions: New ipratropium-albuterol 0.5 mg-3 mg(2.5 mg base)/3 mL solution for nebulization 3 ml INHALATION Q6-8H PRN (Reason: shortness of breath or wheezing) Qty: 90 RF: 0 azithromycin 250 mg tablet See Rx Instructions .ROUTE .COMPLEX Qty: 6 RF: 0 No Action albuterol sulfate [ProAir HFA] 90 mcg/actuation Hfa Aerosol Inhaler 1 - 2 puff INHALATION Q6H PRN (Reason: Wheezing) RF: 0 fluticasone propion-salmeterol [Advair Diskus] 250-50 mcg/dose blister with device 1 puff Inhalation BID RF: 0 fvnhjlspgh-zizwlnmquxxtq-iyro 50-325-40 mg tablet 1 tab PO Q4H RF: 0 ipratropium-albuterol 0.5 mg-3 mg(2.5 mg base)/3 mL solution for nebulization 1 neb Inhalation DIRECTED RF: 0 [id number] fum-folic 27 mg iron- 800 mcg tablet 1 tab PO DAILY RF: 0 ipratropium-albuterol 0.5 mg-3 mg(2.5 mg base)/3 mL solution for nebulization 3 ml INHALATION QID Qty: 180 RF: 0 albuterol sulfate 2.5 mg /3 mL (0.083 %) solution for nebulization 2.5 mg INHALATION Q4-6H PRN (Reason: shortness of breath or wheezing) Qty: 180 RF: 0 prednisone 20 mg tablet 20 mg PO DAILY Qty: 5 RF: 0 aspirin 81 mg Tablet,Delayed Release (Dr/Ec) 81 mg PO DAILY RF: 0 Referrals: Kirsten Macias MD [Physician] -
[2018-09-12] MEDS: ALBUTEROL/IPRATROPIUM 3 ML AMPUL INH ×2 (07:19→07:21)
[2018-09-12 07:23] VITALS: PULSE 111; O2SAT 98
[2018-09-12 07:52] VITALS: PULSE 118; O2SAT 99
[2018-09-12] MEDS: ALBUTEROL 0.5% CONTINUOUS NEB 12 MG INH (08:04)
[2018-09-12 08:28] VITALS: PULSE 136; RESP 20; O2SAT 100
[2018-09-12 09:22] VITALS: BP 108/72; PULSE 118; RESP 20; O2SAT 98
--- NOTE | 2018-09-12 09:25 | PC.NURSE ---
Feels improved w/ easy work of breathing. Encouraged to increase fluid intake. Has neb @ home and has used in the past.
== END 2018-09-12 09:27 | disposition home or self-care (01) ==
PROVIDERS: Emergency Provider Emergency Medicine
DX: O26.893 Other specified pregnancy related conditions, third trimester (principal); J18.9 Pneumonia, unspecified organism; J45.901 Unspecified asthma with (acute) exacerbation; Z3A.33 33 weeks gestation of pregnancy
CPT/HCPCS: 94150; 94640; 99283; 99284; J1100; J7611

== ENCOUNTER 2018-10-14 23:23 | Outpatient (CLI) | payer OTHER, SELFPAY ==
--- NOTE | 2018-10-16 08:05 | P.TNLD_ITS ---
Visit Information Visit Information Date of evaluation: 10/15/18 On-call OB Provider: Luh London Reason for Evaluation: Yes rule out labor PFSH Social History Smoking Status: Never smoker Evaluation Evaluation Baseline heart rate: 135 Variability: Moderate (11-25) monitor accelerations: Present monitor decelerations: Absent Contraction Frequency (minutes): 2 Uterine Contraction Intensity: Mild Category of Tracing: I Cervical dilation (cm): 2 Cervical effacement (%): 50 station: 0 Diagnosis, Plan/Disposition Final Diagnosis (1) 38 weeks gestation of : Current Visit: No Status: Acute Plan/Disposition Plan: 28 year old at 38+1 weeks gestation presented to the center with several hours of contractions, though not particularly painful. NST reactive. SVE reportedly unchanged from a week prior. Patient discharged home and will follow up with primary OB on the [employer]. OB Disposition: home
== END 2018-10-15 00:10 | disposition home or self-care (01) ==
LOC: LABOR 23:29 → OB 10-15 14:08
PROVIDERS: Visit Provider Family Medicine
DX: O47.1 False labor at or after 37 completed weeks of gestation (principal); Z3A.38 38 weeks gestation of pregnancy
CPT/HCPCS: 59025; G0378; G0379

== ENCOUNTER 2020-04-12 10:42 | Emergency (ER) | payer OTHER, SELFPAY ==
[2020-04-12] VITALS (16 sets, daily range): BP systolic 109–173; BP diastolic 68–108; PULSE 102–134; RESP 16–36; TEMP 36.8; O2SAT 95–98; BMI 26.1
[2020-04-12] MEDS: ALBUTEROL HFA 200 PUFF/18 GM INH (COVID POS/VENT PTS) INH (10:59)
[2020-04-12] MEDS: dexAMETHasone 4 MG TABLET 12 MG PO (10:59)
[2020-04-12 11:15] LABS: COVID19 -Nasal RAPID Negative (Negative)
--- NOTE | 2020-04-12 11:31 | ED.GENADULT ---
HPI - General Adult General Chief complaint: Shortness of Breath/Dyspnea Stated complaint: asthma flare up Time Seen by Provider: 04/12/20 10:49 Source: patient Mode of arrival: Ambulatory Limitations: no limitations History of Present Illness HPI narrative: Patient is a 30-year-old female history of asthma. Does use daily albuterol nebs and also other daily inhaled medications here for evaluation of approximately 2 weeks of progressively worsening shortness of breath. No fevers. Has had a cough. Has tried nebs multiple times today without any improvement. Has been hospitalized in the past for her asthma but has never been intubated. She states she has had magnesium in the past which seems to help her symptoms she comes the ER. Related Data Home Medications Medication Instructions Recorded Confirmed albuterol sulfate [ProAir HFA] 1 - 2 puff INHALATION Q6H PRN 04/13/18 10/15/18 fluticasone propion-salmeterol 1 puff INHALATION BID 04/29/18 10/15/18 [Advair Diskus] [id number] fum-folic 1 tab PO DAILY 04/29/18 10/15/18 prednisone 15 mg PO DAILY 10/15/18 10/15/18 Previous Rx's Medication Instructions Recorded albuterol sulfate 2.5 mg INHALATION Q4-6H PRN #180 ml 07/30/18 ipratropium-albuterol 3 ml INHALATION QID #180 ml 07/30/18 prednisone 20 mg PO DAILY 5 Days #5 tab 04/12/20 Allergies Allergy/AdvReac Type Severity Reaction Status Date / Time sumatriptan [From Imitrex] Allergy Intermediate Swelling Verified 10/15/18 00:29 of Lip/Tongue/Throat Review of Systems Constitutional Constitutional: Denies fever(s) Cardiovascular Cardiovascular: Denies chest pain, Reports dyspnea and Reports dyspnea on exertion Respiratory Respiratory: Reports cough, Reports dyspnea, Reports dyspnea on exertion and Reports wheezing Gastrointestinal Gastrointestinal: Denies change in bowel habits, Denies nausea and Denies vomiting Integumentary/Breasts Skin/Breast: Denies rash Neurologic Neurologic: Denies behavioral changes Psychiatric Psychiatric: Denies behavioral changes Hematologic/Lymphatic Hematologic/Lymphatic: Denies easy bleeding and Denies easy bruising Allergic/Immunologic Allergic/Immunologic: Reports wheezing Patient History Medical History (Updated 04/12/20 @ 15:07 by Gordy Patel DO) Asthma Preeclampsia Surgical History No pertinent past surgical history Social History Smoking Status: Never smoker Smoking Status: Never smoker alcohol intake frequency: 0-2 drinks per day Substance Use Type: does not use Exam Initial Vital Signs Initial Vital Signs: Vital Signs Temperature 98.3 F 04/12/20 10:50 Pulse Rate 126 H 04/12/20 10:50 Respiratory Rate 36 H 04/12/20 10:50 Blood Pressure 173/108 H 04/12/20 10:50 Pulse Oximetry 97 04/12/20 10:50 Const General: cooperative and comfortable Limitations: mental status not altered HENMT Head: normal to inspection and normocephalic Resp Effort & Inspection: not labored and tachypneic Auscultation: wheezes Cardio Rate: tachycardic Rhythm: regular rhythm Skin Lesions: no lesions Rashes: no rashes Extrem General: normal to inspection and capillary refill normal Psych Appearance: grossly normal and well kempt Scores GCS [place] coma scale eye opening: Spontaneous [place] coma scale verbal response: Orientated [place] coma scale motor response: Obey commands [place] coma scale total score: 15 Course Orders Ordered: ED Orders 04/12/20 10:50 COVID19 Stat Discontinued Medications Acetaminophen (Acetaminophen 325 Mg Tablet) 650 mg PO NOW ONE Stop: 04/12/20 12:07 Last Admin: 04/12/20 12:28 Dose: 650 mg Documented by: MOSES Albuterol (Albuterol Hfa 200 Puff/18 Gm Inh (Covid Pos/Vent Pts)) 4 puff INH NOW ONE Stop: 04/12/20 10:50 Last Admin: 04/12/20 10:59 Dose: 4 puff Documented by: VIKASH Albuterol (Albuterol 2.5 Mg/3 Ml Neb (Adult)) 17.5 mg INH NOW ONE Stop: 04/12/20 12:13 Last Admin: 04/12/20 12:27 Dose: 17.5 mg Documented by: VIKASH Albuterol/Ipratropium (Albuterol/Ipratropium 3 Ml Ampul) 3 ml INH NOW ONE Stop: 04/12/20 11:32 Last Admin: 04/12/20 11:51 Dose: 3 ml Documented by: CHAD Dexamethasone (Dexamethasone 4 Mg Tablet) 12 mg PO NOW ONE Stop: 04/12/20 10:52 Last Admin: 04/12/20 10:59 Dose: 12 mg Documented by: TEJA Magnesium Sulfate (Magnesium Sulfate) 2 gm in 50 mls @ 25 mls/hr IV NOW ONE Stop: 04/12/20 13:04 Last Infusion: 04/12/20 12:05 Dose: 0 mls/hr Documented by: MOSES Cosigned by: GOKUL Admin: 04/12/20 11:35 Dose: 25 mls/hr Documented by: MOSES Cosigned by: TEJA Ibuprofen (Ibuprofen 400 Mg Tablet) 400 mg PO NOW ONE Stop: 04/12/20 12:07 Last Admin: 04/12/20 12:28 Dose: 400 mg Documented by: MOSES Vital Signs Vital signs: Vital Signs - 8 hr 04/12/20 10:50 04/12/20 10:52 04/12/20 11:00 Temperature 98.3 F Pulse Rate 126 H 134 H 120 H Respiratory Rate 36 H 28 H Blood Pressure 173/108 H Pulse Oximetry 97 96 97 04/12/20 11:17 04/12/20 11:30 04/12/20 11:51 Temperature Pulse Rate 120 H 108 H 105 H Respiratory Rate 26 H 16 Blood Pressure 154/97 H Pulse Oximetry 98 97 98 04/12/20 12:00 04/12/20 12:01 04/12/20 12:25 Temperature Pulse Rate 115 H 113 H 107 H Respiratory Rate Blood Pressure 145/84 H 133/79 Pulse Oximetry 96 98 97 04/12/20 12:27 04/12/20 12:30 04/12/20 13:00 Temperature Pulse Rate 104 H 102 H 118 H Respiratory Rate 20 Blood Pressure 123/73 129/97 H Pulse Oximetry 95 96 96 04/12/20 13:30 04/12/20 14:00 04/12/20 14:30 Temperature Pulse Rate 128 H 129 H 125 H Respiratory Rate Blood Pressure 130/71 140/77 109/68 Pulse Oximetry 98 95 96 04/12/20 15:00 Temperature Pulse Rate 125 H Respiratory Rate Blood Pressure Pulse Oximetry 97 Medical Decision Making Lab Data Lab results reviewed: Yes I reviewed the patient's lab results. Labs: Lab Results 04/12/20 Range/Units 10:50 COVID-19 PCR Negative (Negative) Point of Care Testing Test Results Negative Point of care testing: Point of Care Testing Test Results Negative MDM Narrative Medical decision making narrative: Patient received magnesium and steroids and multiple nebulizers. After all of these interventions patient stated that she did feel better. She was observed for approximately 1 hour after last dose of albuterol without any return of her symptoms. She was still wheezing somewhat upon discharge but stated that she felt back to normal and felt like she could be discharged home. Will send her home with a couple days of steroids. She does have medicines at home to help with her symptoms. She was given return precautions. She expressed understanding and agreement. Discharge Plan Departure Patient Disposition: Home Clinical Impression: Asthma exacerbation Instructions: Asthma (Alternative Therapy) Activity Restrictions/Additional Instructions: Continue all of your medications as directed. The prescription of prednisone that you were given today will start tomorrow. Contact your primary provider for follow-up. Return to the emergency department for any new or worsening symptoms Prescriptions: New prednisone 20 mg tablet 20 mg PO DAILY 5 Days Qty: 5 RF: 0 No Action albuterol sulfate [ProAir HFA] 90 mcg/actuation Hfa Aerosol Inhaler 1 - 2 puff INHALATION Q6H PRN (Reason: Wheezing) RF: 0 fluticasone propion-salmeterol [Advair Diskus] 250-50 mcg/dose blister with device 1 puff Inhalation BID RF: 0 [id number] fum-folic 27 mg iron- 800 mcg tablet 1 tab PO DAILY RF: 0 ipratropium-albuterol 0.5 mg-3 mg(2.5 mg base)/3 mL solution for nebulization 3 ml INHALATION QID Qty: 180 RF: 0 albuterol sulfate 2.5 mg /3 mL (0.083 %) solution for nebulization 2.5 mg INHALATION Q4-6H PRN (Reason: shortness of breath or wheezing) Qty: 180 RF: 0 prednisone 20 mg tablet 15 mg PO DAILY RF: 0 Referrals: Samia Armenta DO [Primary Care Provider] -
[2020-04-12] MEDS: MAGNESIUM SULFATE 2 GM/50 ML PIGGYBACK IV (11:35)
[2020-04-12] MEDS: ALBUTEROL/IPRATROPIUM 3 ML AMPUL INH (11:51)
[2020-04-12] MEDS: ALBUTEROL 2.5 MG/3 ML NEB (ADULT) 17.5 MG INH (12:27)
[2020-04-12] MEDS: IBUPROFEN 400 MG TABLET PO (12:28)
[2020-04-12] MEDS: ACETAMINOPHEN 325 MG TABLET 650 MG PO (12:28)
== END 2020-04-12 15:22 | disposition home or self-care (01) ==
PROVIDERS: Emergency Provider Emergency Medicine; PCP Family Medicine
DX: J45.901 Unspecified asthma with (acute) exacerbation (principal); R05 Cough
CPT/HCPCS: 36415; 81025; 87635; 94150; 94640; 99281; 99284; A9270; J7613